=== PATIENT | male | born 1960 | race Caucasian/White ===

== ENCOUNTER 2020-08-10 00:11 | Inpatient (IN) | payer OTHER ==
[2020-08-10 00:48] VITALS: BMI 64.0
--- NOTE | 2020-08-10 01:01 | PDOC ---
History of Present Illness - General Chief Complaint: Alcohol intoxication Stated Complaint: INTOX Time Seen by Provider: 08/10/20 00:22 - History of Present Illness Initial Comments: 08/10/20 00:55 59yo M with reported history of cirrhosis, anemia, and HTN presents from [facility] for evaluation of bruising to arms and abdomen. Patient went to [facility] because he is interested in stopping to drink. He started drinking again three weeks ago because of sadness about separation from his . He has had 2-3 beers most days, last drink was 2 beers this morning. States he has noticed more bruising recently, which he attributes to his anemia and to the alcohol. Denies trauma or falls. PMH: as above PSH: shoulder Meds: patient unsure of names Allergies: none ETOH: 2-3 drinks most days Drugs: denies Tobacco: denies ROS GENERAL/CONSTITUTIONAL: No fever or chills. No weakness. HEAD, EYES, EARS, NOSE AND THROAT: No change in vision. No ear pain or discharge. No sore throat. CARDIOVASCULAR: No chest pain or shortness of breath RESPIRATORY: No cough, wheezing, or hemoptysis. GASTROINTESTINAL: No nausea, vomiting, diarrhea or constipation. GENITOURINARY: No dysuria, frequency, or change in urination. MUSCULOSKELETAL: No joint or muscle swelling or pain. No neck or back pain. SKIN: No rash NEUROLOGIC: No headache, vertigo, loss of consciousness, or change in strength/sensation. ENDOCRINE: No increased thirst. No abnormal weight change HEMATOLOGIC/LYMPHATIC: anemia ALLERGIC/IMMUNOLOGIC: No hives or skin allergy. PE GENERAL: Awake, alert, and fully oriented, in no acute distress. anxious, tremulous HEAD: No signs of trauma, normocephalic, atraumatic EYES: PERRLA, EOMI, sclera anicteric, conjunctiva clear ENT: Auricles normal inspection, hearing grossly normal, nares patent, oropharynx clear without exudates. Moist mucosa NECK: Normal ROM, supple, no lymphadenopathy, JVD, or masses LUNGS: No distress, speaks full sentences, clear to auscultation bilaterally HEART: Regular rate and rhythm, normal S1 and S2, no murmurs, rubs or gallops, peripheral pulses normal and equal bilaterally. ABDOMEN: Soft, distended, large bruising on left. nontender EXTREMITIES : bruising on arms, trace b/l LE edema NEUROLOGICAL: Normal speech, no focal sensorimotor deficits SKIN: Warm, Dry Vital Signs Temp Pulse Resp BP Pulse Ox 98.1 F 81 20 120/72 98 08/10/20 00:35 08/10/20 01:02 08/10/20 01:02 08/10/20 01:02 08/10/20 01:02 59yo M with reported history of cirrhosis, anemia, and HTN presents from [facility] for evaluation of bruising to arms and abdomen. CIWA 7. DDx includes thrombocytopenia, coagulopathy, anemia, ETOH withdrawal. -EKG -CBC, CMP, coags, cardiac enzymes, alcohol 08/10/20 01:03 EKG Labs: notable for Plt 9 and alcohol 263. Also WBC 2.0, Hgb 8.6, K 3.4, AST 153, alk phos 243, albumin 2.6 Ordered for platelets Will admit for ETOH withdrawal and thrombocytopenia 08/10/20 03:37 Signed out to admitting team Past History - Medical History Allergies/Adverse Reactions: Allergies Allergy/AdvReac Type Severity Reaction Status Date / Time No Known Allergies Allergy Verified 08/09/20 21:08 Home Medications: Ambulatory Orders Unobtainable 08/09/20 - Psycho-Social/Smoking History Smoking History: Unknown if ever smoked Have you smoked in the past 12 months: No Information on smoking cessation initiated: No - Substance Abuse Hx (Audit-C & DAST Scrn) How often the patient has a drink containing alcohol: 4 0r more times/wk Number of drinks the patient has on a typical day: 3 or 4 How often the patient has six or more drinks on one occasion: Weekly Score: In Men: 4 or > Positive; In Women: 3 or > Positive: 8 Screen Result (Pos requires Nsg. Audit-10AR): Positive In the last yr the pt used illegal drug/Rx for NonMed reason: No Score: Yes response is considered Positive: 0 Screen Result (Positive result requires Nsg. DAST-10): Negative *Physical Exam - Vital Signs Last Vital Signs Temp Pulse Resp BP Pulse Ox 98.1 F 87 18 136/85 97 08/10/20 00:35 08/10/20 00:35 08/10/20 00:35 08/10/20 00:35 08/10/20 00:35 ED Treatment Course - LABORATORY CBC & Chemistry Diagram: 08/10/20 01:00 08/10/20 01:00 Discharge - Discharge Information Problems reviewed: Yes Clinical Impression/Diagnosis: Thrombocytopenia, Easy bruising, Normocytic anemia Alcohol withdrawal Qualifiers: Complication of substance-induced condition: uncomplicated Qualified Code(s): F10.230 - Alcohol dependence with withdrawal, uncomplicated Cirrhosis Qualifiers: Hepatic cirrhosis type: alcoholic cirrhosis Ascites presence: with ascites Qu alified Code(s): K70.31 - Alcoholic cirrhosis of liver with ascites Condition: Fair - Admission Yes - Follow up/Referral - Patient Discharge Instructions - Post Discharge Activity CIWA Score Nausea/Vomitin-No Nausea/No Vomiting Muscle Tremors: 3 Anxiety: 3 Agitation: 1-Slight > Activity Paroxysmal Sweats: No Perspiration Orientation: 0-Oriented Tacttile Disturbances: 0-None Auditory Disturbances: 0-None Visual Disturbances: 0-None Headache: 0-None Present CIWA-Ar Total Score: 7 - Admission Criteria OASAS Guidelines: Admission for Medically Managed Detox: Requires at least one of the followin. CIWA greater than 12 2. Seizures within the past 24 hours 3. Delirium tremens within the past 24 hours 4. Hallucinations within the past 24 hours 5. Acute intervention needed for co occurring medical disorder 6. Acute intervention needed for co occurring psychiatric disorder 7. Severe withdrawal that cannot be handled at a lower level of care (continued vomiting, continued diarrhea, abnormal vital signs) requiring intravenous medication and/or fluids 8.
--- NOTE | 2020-08-10 01:41 | PDOC ---
Attending Attestation - Resident Resident Name: Alejandro Reynaga - ED Attending Attestation I have performed the following: I have examined & evaluated the patient, The case was reviewed & discussed with the resident, I agree w/resident's findings & plan - HPI HPI: 08/10/20 01:42 Pt comes with cirrhosis and ascites of the liver. Pt has some bruising to his skin and was sent for evaluation. - Physicial Exam PE: 08/10/20 01:43 Pt has normal vitals A+OX3 Pt has normal heart and lungs Abd enlarged liver NT ND neuro exam intact multipole bruises to the right arm - Medical Decision Making 08/10/20 21:21 Pt transfused with platelets. He will be admitted for anemia; low platelets and alcohol induced liver disease Heart Score/ECG Review - ECG Intrepretation Rhythm: Regular Rhythm - [place]: Normal - P and IL Delta Wave(s) Present: No WPW: No - ST and T Early Repolarization: No Non Specific ST-T Wave changes: No - ECG Impressions Normal ECG: Yes Non-specific ST Elevation: No Ischemic Changes: Yes (flat inferior T waves) Discharge - Discharge Information Problems reviewed: Yes Clinical Impression/Diagnosis: Thrombocytopenia, Easy bruising, Normocytic anemia Alcohol withdrawal Qualifiers: Complication of substance-induced condition: uncomplicated Qualified Code(s): F10.230 - Alcohol dependence with withdrawal, uncomplicated Cirrhosis Qualifiers: Hepatic cirrhosis type: alcoholic cirrhosis Ascites presence: with ascites Qualified Code(s): K70.31 - Alcoholic cirrhosis of liver with ascites Condition: Fair Disposition: AGAINST MEDICAL ADVICE - Follow up/Referral - Patient Discharge Instructions - Post Discharge Activity
[2020-08-10 01:58] LABS: BASO % 0.7 % (0-2.0); EOS % 0.6 % (0-4.5); HEMATOCRIT 26.4 % (35.4-49); HEMOGLOBIN 8.6 GM/dL (11.7-16.9); LYMPH % 24.1 % (8-40); MCH 28.2 pg (25.7-33.7); MCHC 32.6 g/dl (32.0-35.9); MEAN CELL VOLUME 86.6 fl (80-96); MONO % 9.7 % (3.8-10.2); NEUT % 64.9 % (42.8-82.8); RBC 3.05 M/mm3 (4.00-5.60); RDW 19.5 % (11.9-15.9)
[2020-08-10 02:04] LABS: PLATELET COUNT 9 K/MM3 (134-434)
[2020-08-10 02:06] LABS: INR 1.39 (0.83-1.09); PROTHROMBIN TIME (PATIENT) 16.4 SEC (9.7-13.0)
[2020-08-10 02:08] LABS: ACTIVATED PTT 35.8 SECONDS (25.2-36.5)
[2020-08-10 02:16] LABS: ALBUMIN 2.6 g/dl (3.4-5.0); BLOOD UREA NITROGEN 10.7 mg/dL (7-18); CALCIUM 7.6 mg/dL (8.5-10.1); CREATININE 0.6 mg/dL (0.55-1.3); POTASSIUM 3.4 mmol/L (3.5-5.1); TOT PROT 7.6 g/dl (6.4-8.2)
[2020-08-10 03:07] LABS: BILIRUBIN,TOTAL 2.4 mg/dL (0.2-1)
--- NOTE | 2020-08-10 03:36 | PN ---
Teaching Attending Note Name of Resident: Mauricio Cottrell ATTENDING PHYSICIAN STATEMENT I saw and evaluated the patient. I reviewed the resident's note and discussed the case with the resident. I agree with the resident's findings and plan as documented. SUBJECTIVE: Patient is a 59 year old man with a PMH of Alcohol abuse, Liver cirrhosis, GI bleeding, PRBC transfusion, Anemia, Ascites and HTN who presents from [facility] for evaluation of bruising to arms and abdomen. Patient went to [facility] because he is interested in stopping drinking. He started drinking again three weeks ago because of sadness about separation from his . He has had 2-3 beers most days, last drink was 2 beers this morning. States he has noticed more bruising recently, which he attributes to his anemia and to the alcohol. Denies trauma or falls. Patient denies chest pain, shortness of breath, abdominal pain, headache, palpitations, dizziness, fever, chills, nausea, vomiting, diarrhea, constipation, dysuria, frequency, urgency, melena, hematochezia or hematuria. Denies tobacco or illicit drug use. No sick contacts or recent travels. Family history of DM in mother. OBJECTIVE: Alert Vital Signs Period Temp Pulse Resp BP Sys/Schumacher Pulse Ox Last 24 Hr 98.1 F 81-87 18-20 120-136/72-85 97-98 HEENT: No Jaundice, eye redness or discharge, PERRLA, EOMI. Normocephalic, atraumatic. External ears are normal and hearing is grossly intact. No nasal discharge. Neck: Supple, nontender. No palpable adenopathy or thyromegaly. No JVD Chest: Good effort. Clear to auscultation and percussion. Heart: Regular. No S3, rub or murmur Abdomen: Not distended, soft, nontender and no HSM. No rebound or guarding. Normal bowel sounds. Ext: Peripheral pulses intact. No leg edema. Skin: Warm and dry. Diffuse petechiae and brusing on trunk and arm; ecchymosis on abdomen and arms. Neuro: Alert. Oriented x3. Anxious and tremulous. CN 2-12 grossly intact. Sensation grossly intact in all four extremities and DTR are symmetric. Psych: Appropriate mood and affect. Good insight. Home Medications Medication Instructions Recorded Unobtainable 08/09/20 Abnormal Lab Results 08/10/20 08/10/20 08/10/20 01:00 01:00 01:00 WBC 2.0 L RBC 3.05 L Hgb 8.6 L Hct 26.4 L RDW 19.5 H Plt Count 9 L* Absolute Neuts (auto) 1.3 L PT with INR 16.40 H INR 1.39 H Potassium 3.4 L Chloride 112 H Anion Gap 7 L Random Glucose 124 H Calcium 7.6 L Total Bilirubin 2.4 H AST 153 H Alkaline Phosphatase 243 H Albumin 2.6 L Alcohol, Quantitative 08/10/20 01:00 WBC RBC Hgb Hct RDW Plt Count Absolute Neuts (auto) PT with INR INR Potassium Chloride Anion Gap Random Glucose Calcium Total Bilirubin AST Alkaline Phosphatase Albumin Alcohol, Quantitative 263.1 H Current Medications Generic Name Dose Route Start Last Admin Trade Name Freq PRN Reason Stop Dose Admin Folic Acid 1 mg 08/10/20 10:00 Folic Acid - PO DAILY [facility] Folic Acid 1 mg/ Thiamine HCl 1,000 mls @ 125 mls/hr 08/10/20 04:44 100 mg/ Multivitamins/Minerals IVPB 08/10/20 12:43 10 ml/ Sodium Chloride ONCE ONE Potassium Chloride 10 meq in 100 mls @ 100 mls/hr 08/10/20 04:45 Potassium Chloride 10 Meq Premix Ivpb - IVPB 08/10/20 05:44 Q60M [facility] Potassium Chloride 10 meq 08/10/20 04:44 K-Dur - PO 08/10/20 04:45 ONCE ONE Thiamine HCl 200 mg 08/10/20 10:00 Vitamin B1 Injection - IVPB DAILY [facility] ASSESSMENT AND PLAN: 1. Alcohol intoxication/Pancytopenia/Severe thrombocytopenia - Pancytopenia likely due to effects of alcoholism and alcoholic liver disease. ER staff prescribed platelet transfusion for the patient. Will consult Hematology, get CT abdomen/pelvis, urinalysis, fibrinogen, FDP, NH3 level, trend LFTs, avoid hepatotoxic drugs and place on reverse isolation. Will do basic anemia work up including serial stool guaiacs, reticulocyte count and iron studies. Will admit to telemetry, implement [facility] Librium alcohol withdrawal protocol and do neurochecks. Implement seizure, fall and aspiration precautions. Treat with IV Banana bag, thiamine and folic acid. Monitor and replete electrolytes (Ca,Mg,K,P). Counseled patient about abstaining from alcohol. Will consult community engagement specialist and refer to alcohol detox upon discharge. Viral testing for COVID-19 ordered and patient placed on airborne, droplet and contact isolation. EKG is pending. Hypokalemia likely partly due to alcoholism. Will check serum magnesium, give IV and PO KCL. Will continue comprehensive care for all of patients comorbid conditions. 2. Hypoalbuminemia - Possibly due to combined effects of malnutrition and inflammation associated with comorbid conditions. Will ensure adequate dietary protein intake and also consult lie detector operator. Urinalysis pending. 3. Hypertension Will restart suitable outpatient antihypertensive drugs when clinically appropriate. Subsequently, will revise regimen to ensure [id number] excellent BP control. Patient counseled on the injurious effects of uncontrolled hypertension. Nonpharmacologic measures to control hypertension like weight loss, salt restriction and exercise stressed. Importance of adherence to treatment regimen and attainment of normotension emphasized. 4. DVT prophylaxis - Early ambulation; cannot use Heparin or SCD due to very low platelets. 5. Advance directives - Full code
[2020-08-10] MEDS ORDERED: POTASSIUM CHLORIDE TABS 10 MEQ TABLET.ER (FP) PO ONE (05:00)
[2020-08-10] MEDS ORDERED: KCL 10 MEQ IVPB 10 MEQ/100 ML INFUS.BAG IVPB SCH (05:00)
[2020-08-10] MEDS ORDERED: KCL 10 MEQ IVPB 10 MEQ/100 ML INFUS.BAG IVPB ONE (05:04)
[2020-08-10] MEDS ORDERED: POTASSIUM CHLORIDE TABS 10 MEQ TABLET.ER (FP) ONE (05:05)
[2020-08-10] MEDS ORDERED: FOLIC ACID INJECTION - 1 MG, THIAMINE HCL 100 MG, MULTIVIT INJECTION ADULT 10 ML in SOD... IVPB ONE (05:15)
--- NOTE | 2020-08-10 05:25 | HP ---
CHIEF COMPLAINT: Bruising PCP: HISTORY OF PRESENT ILLNESS: 59 Y M with a self reported PMH of Cirrhosis, anemia, and HTN, present from [facility] for evaluation of bruising to extremities and left abdomen. He reports that he usually gets these types of bruising when he drinks and it gets better when he stops. He reports that he used to drink "alot" when he was younger and has stopped drinking for about 1 year, however, due to his recent separation with his , he started to drink again 3 weeks ago. He admits to drinking 3-4 beers/d x 3-4 times/week, denies any smoking or IVDU. He reports that he is not able to go home due to a restraining order, therefore, he currently lives with his sister and sometimes at a friends' house. He denies any falls, trauma, LOC, memory loss, loss of motor functions, acute bleeding, chest pain, headache, nausea, vomiting. In ER patient is treated with 4U of platelets ER course was notable for: (1)PLT 9, WBC 2.0, H/H 8.6/26.4 (2) INR 1.39, T.josé miguel 2.4 AST 153, ALT 29, (3) ETOH 263.1 Recent Travel: denies PAST MEDICAL HISTORY: As above in HPI PAST SURGICAL HISTORY: right shoulder surgery Social History: Smoking:denies Alcohol:as in HPI Drugs: denies Allergies No Known Allergies Allergy (Verified 08/09/20 21:08) HOME MEDICATIONS: Home Medications Medication Instructions Recorded Unobtainable 08/09/20 REVIEW OF SYSTEMS CONSTITUTIONAL: Absent: fever, chills, diaphoresis, generalized weakness, malaise, loss of appetite, weight change HEENT: Absent: rhinorrhea, nasal congestion, throat pain, throat swelling, difficulty swallowing CARDIOVASCULAR: Absent: chest pain, syncope, palpitations, irregular heart rate, lightheadedness, peripheral edema RESPIRATORY: Absent: cough, shortness of breath, dyspnea with exertion, orthopnea GASTROINTESTINAL: Absent: abdominal pain, abdominal distension, nausea, vomiting, diarrhea, constipation, melena, hematochezia GENITOURINARY: Absent: dysuria, frequency, urgency, hesitancy, hematuria, flank pain, genital pain SKIN: Absent: rash, itching, pallor NEUROLOGIC: Absent: headache, focal weakness or paresthesias, dizziness, unsteady gait, seizure, mental status changes, bladder or bowel incontinence PHYSICAL EXAMINATION Vital Signs - 24 hr 08/10/20 08/10/20 00:35 01:02 Temperature 98.1 F Pulse Rate 87 Pulse Rate [ 81 Right Radial] Respiratory 18 20 Rate Blood Pressure 136/85 Blood Pressure 120/72 [Right Arm] O2 Sat by Pulse 97 98 Oximetry (%) GENERAL: AAOx3, in no acute distress HEENT: NCAT, PERRLA, EOMI, sclera anicteric, conjunctiva clear, oropharynx clear w/o exudates. MMM. NECK: Normal ROM, supple, no lymphadenopathy, JVD, or masses LUNGS: CTABL no wheezes/ rhonchi/ rales. No distress, speaks in full sentences. No increased work of breathing. HEART: RRR, normal S1 S2, no M/R/G, peripheral pulses 2+ and equal b/l ABDOMEN: Soft, Distended (ascites), non-tender, + BS. No guarding or rebound, negative hepatojugular reflex, no asterisk, mildly visible caput medusa. MSK: ROM WNL, NO CVA tenderness EXTREMITIES: Normal inspection. No peripheral edema. No clubbing or cyanosis. NEUROLOGICAL: CN II-XII intact. Normal speech, gait not observed, no focal sensorimotor deficits. PSYCH: Normal mood, normal affect. SKIN: Warm, Dry, normal turgor, Bruising and petechiae b/l upper and lower extremities, large bruise in left lower abdomen Laboratory Results - last 24 hr 08/10/20 08/10/20 08/10/20 01:00 01:00 01:00 WBC 2.0 L RBC 3.05 L Hgb 8.6 L Hct 26.4 L MCV 86.6 MCH 28.2 MCHC 32.6 RDW 19.5 H Plt Count 9 L* MPV 10.0 Absolute Neuts (auto) 1.3 L Neutrophils % 64.9 Lymphocytes % 24.1 Monocytes % 9.7 Eosinophils % 0.6 Basophils % 0.7 Nucleated RBC % 0 PT with INR 16.40 H INR 1.39 H PTT (Actin FS) 35.8 Sodium 144 Potassium 3.4 L Chloride 112 H Carbon Dioxide 25 Anion Gap 7 L BUN 10.7 Creatinine 0.6 Est GFR (CKD-EPI)AfAm 129.36 Est GFR (CKD-EPI)NonAf 111.61 Random Glucose 124 H Calcium 7.6 L Total Bilirubin 2.4 H AST 153 H ALT 29 Alkaline Phosphatase 243 H Total Protein 7.6 Albumin 2.6 L Alcohol, Quantitative 08/10/20 01:00 WBC RBC Hgb Hct MCV MCH MCHC RDW Plt Count MPV Absolute Neuts (auto) Neutrophils % Lymphocytes % Monocytes % Eosinophils % Basophils % Nucleated RBC % PT with INR INR PTT (Actin FS) Sodium Potassium Chloride Carbon Dioxide Anion Gap BUN Creatinine Est GFR (CKD-EPI)AfAm Est GFR (CKD-EPI)NonAf Random Glucose Calcium Total Bilirubin AST ALT Alkaline Phosphatase Total Protein Albumin Alcohol, Quantitative 263.1 H ASSESSMENT/PLAN: 59 Y M with a self reported PMH of Cirrhosis, anemia, and HTN, present from [facility] for evaluation of bruising to extremities and left abdomen, Labs reveal ed PLT 9, WBC 2.0, H/H 8.6/26.4, admitted for pancytopenia/severe thrombocytopenia #Pancytopenia #severe thrombocytopenia - Likely 2/2 alcoholic liver disease and splenic sequestration - Hx of cirrhosis, self reported by the patient - Patient is receiving 4U of plts in ER - CTAB ordered, will f/u - fibrinogen, FDP, NH3 level - Anemia studies ordered: FOBT, Iron, Retic #Alcohol use disorder - Hx of alcohol abuse, restarted drinking - Ordered IV Banana bag, thiamine and folic acid - [facility] alcohol withdrawal protocol when clinically indicated #Hx of HTN - Patient does not know his medications, will need to med rec and restart home meds when clinically appropriate - will continue to monitor BP DVTppx - NO chemical ppx, severe thrombocytopenia - Encourage early ambulation FEN - No standing fluids - Continue to monitor electrolytes, K+3.4, repleted - Low sodium diet Dispo - Will continue to monitor in telemetry Family Medical History Family History: As Documented Visit type - Emergency Visit Emergency Visit: Yes ED Registration Date: 08/10/20 Care time: The patient presented to the Emergency Department on the above date and was hospitalized for further evaluation of their emergent condition. - New Patient This patient is new to me today: No - Critical Care Critical Care patient: No ATTENDING PHYSICIAN STATEMENT I saw and evaluated the patient. I reviewed the resident's note and discussed the case with the resident. I agree with the resident's findings and plan as documented. SUBJECTIVE: OBJECTIVE: ASSESSMENT AND PLAN:
[2020-08-10] MEDS ORDERED: LORazepam 0.5 MG TABLET ONE ×4 (09:19→18:57)
[2020-08-10] MEDS: LORazepam 0.5 MG TABLET PO PRN ×2 (09:29→18:32)
--- NOTE | 2020-08-10 09:41 | CON.GI ---
Consult Consult Specialty:: GI Referred by:: Hospitalist Service Reason for Consultation:: Cirrhosis - History of Present Illness Chief Complaint: Bruising and anemia History of Present Illness: 59M transferred from detox for evaluation of bruising and anemia. Has a history of alcoholic cirrhosis. Lives in [place] and is followed by gastroenterologists there. He alludes to having had 4 endoscopies, the last being 2 moths ago and being performed by Dr. Fabby Castro. by description it sounds like he may also be followed by carpenter supervisor Dr. Xiang Miranda in [place]. He alludes to having vomited blood in the past leading to his endoscopies. banding may have been performed. he denies vomiting of blood, rect al bleeding, melena. he has noticed bruising and gradual increase in abdominal girth. No abdominal pain. Platelet count noted 9K. CT scan revealed changes consistent with cirrhosis including moderate ascites. His father was an alcoholic. No family history of colorectal cancer or other Gi malignancy. - History Source History Provided By: Patient, Medical Record Limitations to Obtaining History: No Limitations - Past Medical History Cardio/Vascular: Yes: HTN Gastrointestinal: Yes: Esophageal Varices (presumed) Hepatobiliary: Yes: Cirrhosis (alcoholic) - Past Surgical History Additional Surgical History: right shoulder surgery - Alcohol/Substance Use Hx Alcohol Use: Yes (Alcohol abuse) - Smoking History Smoking history: Unknown if ever smoked Have you smoked in the past 12 months: No - Social History Usual Living Arrangement: Other (With sister) ADL: Independent Place of : Other ([place]) History of Recent Travel: No Home Medications - Allergies Allergies/Adverse Reactions: Allergies Allergy/AdvReac Type Severity Reaction Status Date / Time No Known Allergies Allergy Verified 08/09/20 21:08 - Home Medications Home Medications: Ambulatory Orders Unobtainable 08/09/20 Family Medical History Other Family History: Father: : alcoholic, DM II. Mother: Alive: healthy. 4 sisters: healthy. 2 daughters, 3 sons: healthy Review of Systems - Review of Systems Constitutional: denies: Chills Cardiovascular: denies: Chest Pain Respiratory: denies: SOB Gastrointestinal: denies: Abdominal Pain, Melena, Nausea, Rectal Bleeding, Vomiting, Vomiting Blood Physical Exam-GI Vital Signs: Vital Signs Temperature 98.8 F 08/10/20 09:06 Pulse Rate 100 H 08/10/20 09:06 Respiratory Rate 17 08/10/20 09:06 Blood Pressure 141/89 08/10/20 09:06 O2 Sat by Pulse Oximetry (%) 100 08/10/20 09:06 Constitutional: Yes: Calm Eyes: No: Sclera Icterus Cardiovascular: Yes: Tachycardia. No: Murmur Respiratory: Yes: CTA Bilaterally Gastrointestinal Inspection: Yes: Distention (softly protuberant) ...Auscultate: Yes: Normoactive Bowel Sounds ...Palpate: Yes: Soft. No: Hepatomegaly, Splenomegaly, Tenderness ...Percussion: No: Tympanitic ...Rectal Exam: Yes: Deferred (refused by patient) Edema: No (no LE edema) Neurological: Yes: Alert. No: Asterix[facility] Labs: CBC, BMP 08/10/20 01:00 08/10/20 01:00 INR, PTT INR 1.39 (0.83-1.09) H 08/10/20 01:00 Fibrinogen 156.0 mg/dL (238-498) L 08/10/20 05:30 Imaging - Results Cat Scan: Report Reviewed, Image Reviewed Problem List - Problems (1) Cirrhosis Assessment/Plan: Receives care in [place] with recent EGD performed: advise: Obtain further information regarding his inpatient/outpatient GI care at [facility] Will need follow-up with his gastroenterologits / carpenter supervisor upon discharged Nadolol 20mg once daily. Hold for systolic blood presure less than 90, heart rate < 55 or if patient symptomatic Obtain home medication list to see what other medications he has been taking Hematology evaluation for severe thrombocytopenia When thrombocytopenia allows, diagnostic paracentesis with fluid sent for cell count with differential, culture, cytology (needs to be written as a physical order in the chart and nurse needs to be notified), total protein, albumin. hepatic panel should be drawn the same day as the paracentesis performed. Withdrawal precautions. Code(s): K74.60 - UNSPECIFIED CIRRHOSIS OF LIVER Qualifiers: Hepatic cirrhosis type: alcoholic cirrhosis Ascites presence: with ascites Qualified Code(s): K70.31 - Alcoholic cirrhosis of liver with ascites
[2020-08-10] MEDS ORDERED: THIAMINE HCL 200 MG/2 ML VIAL IVPB SCH (10:00)
[2020-08-10] MEDS ORDERED: FOLIC ACID 1 MG TABLET (FP) PO SCH (10:00)
[2020-08-10] MEDS ORDERED: FOLIC ACID 1 MG TABLET (FP) ONE (10:17)
[2020-08-10] MEDS ORDERED: THIAMINE HCL 200 MG/2 ML VIAL ONE (10:17)
--- NOTE | 2020-08-10 11:12 | PN ---
Teaching Attending Note Name of Resident: Bernadette Anne ATTENDING PHYSICIAN STATEMENT I saw and evaluated the patient. I reviewed the resident's note and discussed the case with the resident. I agree with the resident's findings and plan as documented. SUBJECTIVE: Feels okay, mild abdominal discomfort. No fever/chills/nausea/vomiting/melena/hematochezia. OBJECTIVE: Afebrile, hemodynamically Stable. Tremor of outstretched arms/tongue. Last Vital Signs Temp Pulse Resp BP Pulse Ox 98.8 F 100 H 17 141/89 100 08/10/20 09:06 08/10/20 09:06 08/10/20 09:06 08/10/20 09:06 08/10/20 09:06 HEENT - Atraumatic, Normocephalic. Heart - S1, S2, RRR Lungs - clear to auscultation Abdomen - Distended, Ascites +. Mild generalized tenderness. Bowel Sounds normal. Extremities - trace edema, no calf tenderness. L shoulder discomfort/reduced ROM - chronic. MS - Some bruising on extremities and small area on abdomen. Neuro - AAO x 3. Tone/Power normal. Laboratory Results - last 24 hr 08/10/20 08/10/20 08/10/20 01:00 01:00 01:00 WBC 2.0 L RBC 3.05 L Hgb 8.6 L Hct 26.4 L MCV 86.6 MCH 28.2 MCHC 32.6 RDW 19.5 H Plt Count 9 L* MPV 10.0 Absolute Neuts (auto) 1.3 L Neutrophils % 64.9 Lymphocytes % 24.1 Monocytes % 9.7 Eosinophils % 0.6 Basophils % 0.7 Nucleated RBC % 0 Retic Count PT with INR 16.40 H INR 1.39 H PTT (Actin FS) 35.8 Fibrinogen Sodium 144 Potassium 3.4 L Chloride 112 H Carbon Dioxide 25 Anion Gap 7 L BUN 10.7 Creatinine 0.6 Est GFR (CKD-EPI)AfAm 129.36 Est GFR (CKD-EPI)NonAf 111.61 Random Glucose 124 H Calcium 7.6 L Iron 41 L TIBC 277 Iron Saturation 14 L Unsaturated IBC 236 Ferritin 29.4 Total Bilirubin 2.4 H AST 153 H ALT 29 Alkaline Phosphatase 243 H Ammonia Total Protein 7.6 Albumin 2.6 L Alcohol, Quantitative Blood Type Antibody Screen 08/10/20 08/10/20 08/10/20 01:00 04:00 04:20 WBC RBC Hgb Hct MCV MCH MCHC RDW Plt Count MPV Absolute Neuts (auto) Neutrophils % Lymphocytes % Monocytes % Eosinophils % Basophils % Nucleated RBC % Retic Count PT with INR INR PTT (Actin FS) Fibrinogen Sodium Potassium Chloride Carbon Dioxide Anion Gap BUN Creatinine Est GFR (CKD-EPI)AfAm Est GFR (CKD-EPI)NonAf Random Glucose Calcium Iron TIBC Iron Saturation Unsaturated IBC Ferritin Total Bilirubin AST ALT Alkaline Phosphatase Ammonia Total Protein Albumin Alcohol, Quantitative 263.1 H Blood Type O POSITIVE O POSITIVE Antibody Screen Negative Negative 08/10/20 08/10/20 08/10/20 05:30 05:30 05:30 WBC RBC Hgb Hct MCV MCH MCHC RDW Plt Count MPV Absolute Neuts (auto) Neutrophils % Lymphocytes % Monocytes % Eosinophils % Basophils % Nucleated RBC % Retic Count 2.58 H PT with INR INR PTT (Actin FS) Fibrinogen Sodium Potassium Chloride Carbon Dioxide Anion Gap BUN Creatinine Est GFR (CKD-EPI)AfAm Est GFR (CKD-EPI)NonAf Random Glucose Calcium Iron 50 TIBC 278 Iron Saturation 17 L Unsaturated IBC 228 Ferritin 28.4 Total Bilirubin AST ALT Alkaline Phosphatase Ammonia 71.60 H Total Protein Albumin Alcohol, Quantitative Blood Type Antibody Screen 08/10/20 05:30 WBC RBC Hgb Hct MCV MCH MCHC RDW Plt Count MPV Absolute Neuts (auto) Neutrophils % Lymphocytes % Monocytes % Eosinophils % Basophils % Nucleated RBC % Retic Count PT with INR INR PTT (Actin FS) Fibrinogen 156.0 L Sodium Potassium Chloride Carbon Dioxide Anion Gap BUN Creatinine Est GFR (CKD-EPI)AfAm Est GFR (CKD-EPI)NonAf Random Glucose Calcium Iron TIBC Iron Saturation Unsaturated IBC Ferritin Total Bilirubin AST ALT Alkaline Phosphatase Ammonia Total Protein Albumin Alcohol, Quantitative Blood Type Antibody Screen Current Medications Generic Name Dose Route Start Last Admin Trade Name Freq PRN Reason Stop Dose Admin Folic Acid 1 mg 08/10/20 10:00 08/10/20 10:33 Folic Acid - PO 1 mg DAILY BEKA Administration Folic Acid 1 mg/ Thiamine HCl 1,000 mls @ 125 mls/hr 08/10/20 05:15 08/10/20 06:27 100 mg/ Multivitamins/Minerals IVPB 08/10/20 13:14 125 mls/hr 10 ml/ Sodium Chloride ONCE ONE Administration Lorazepam 1 mg 08/12/20 05:00 Ativan - PO 08/12/20 23:01 0500,1100,1700,2300 BEKA Lorazepam 1 mg 08/10/20 08:39 08/10/20 09:29 Ativan - PO 08/12/20 23:59 1 mg Q4H PRN Administration Symptoms of Withdrawal Lorazepam 2 mg 08/10/20 11:00 Ativan - PO 08/11/20 23:01 0500,1100,1700,2300 BEKA Lorazepam 0.5 mg 08/13/20 05:00 Ativan - PO 08/13/20 23:01 Q6H BEKA Lorazepam 0.5 mg 08/13/20 00:00 Ativan - PO 08/14/20 00:00 Q4H PRN Symptoms of Withdrawal Lorazepam 0.5 mg 08/14/20 05:00 Ativan - PO 08/14/20 05:01 ONCE ONE Thiamine HCl 200 mg 08/10/20 10:00 08/10/20 10:33 Vitamin B1 Injection - IVPB 200 mg DAILY BEKA Administration Home Medications Medication Instructions Recorded Unobtainable 08/09/20 ASSESSMENT AND PLAN: 59 year old male with history of Cirrhosis, Chronic Anemia, and HTN, sent from [facility] (where he was undergoing alcohol detox) for bruising, found to have Platelets of 9. Denies melena/hematochezia/hematemesis/hemoptysis. 1. Pancytopenia (Leukopenia/Anemia/thrombocytopenia) - likely secondary to Liver Cirrhosis CT A/P - Cirrhosis/Ascites/Varices WBC 2, H/H 8.6/26.4, Platelets 9 - ordered 4 units Platelets by admitting team. Iron Deficiency Anemia - No active bleeding No fever/GREGG, unlikely hemolysis. Peripheral smear requested, [facility] Hematology evaluation requested. No signs of infection - GI recommend Paracentesis once platelet levels allow - no empiric Abx therapy. Will need Iron supplementation on discharge. Records requested from [facility]. 2. Acute Alcohol Withdrawal Ativan as per [facility] protocol Banana Bag MVI, Thiamine, Folic Acid. 3. Ascites and Varices secondary to Portal Hypertension due to Liver Cirrhosis Evaluated by GI - recommend Paracentesis once platelet level allows, started on nadolol. Records requested from [facility] for recent EGD/GI work up and list of home meds. 4. Elevated Ammonia secondary to Cirrhosis - no evidence of acute hepatic encephalopathy. Will give lactulose to prevent encephalopathy. 5. HTN - Need to reconcile meds. Recommended Nadolol by GI in the interim. DVT Px - Heparin/Lovenox held due to severe Thrombocytopneia
[2020-08-10] MEDS ORDERED: LACTULOSE 20 GM/30 ML UDC (FOR ORAL USE ONLY) PO PRN (11:18)
[2020-08-10] MEDS ORDERED: NADOLOL 20 MG TABLET (FP) PO SCH (11:30)
--- NOTE | 2020-08-10 11:50 | PN ---
Physical Exam: SUBJECTIVE: Patient seen and examined at bedside this morning. Denies fevers, chills, nausea, vomiting, headache, dizziness, chest pain, SOB, abdominal pain, bloody urine or stool. + tremors. OBJECTIVE: Vital Signs Temperature 98.8 F 08/10/20 11:15 Pulse Rate 93 H 08/10/20 11:15 Respiratory Rate 16 08/10/20 11:15 Blood Pressure 133/83 08/10/20 11:15 O2 Sat by Pulse Oximetry (%) 97 08/10/20 11:15 GENERAL: The patient is awake, alert, and fully oriented, in no acute distress. HEAD: Normal with no signs of trauma. EYES: PERRLA, EOMI, sclera anicteric, conjunctiva clear. ENT: moist mucous membranes. NECK: supple. LUNGS: Breath sounds equal, clear to auscultation bilaterally HEART: Regular rate and rhythm, S1, S2 ABDOMEN: Soft, mildly distended, mild diffuse tenderness, normoactive bowel sounds, +LLQ bruising EXTREMITIES: 2+ pulses, warm, well-perfused, no edema. +b/l LE bruises NEUROLOGICAL: Cranial nerves II through XII grossly intact. Normal speech PSYCH: Normal mood, normal affect. SKIN: Warm, dry, normal turgor Laboratory Results - last 24 hr 08/10/20 08/10/20 08/10/20 01:00 01:00 01:00 WBC 2.0 L RBC 3.05 L Hgb 8.6 L Hct 26.4 L MCV 86.6 MCH 28.2 MCHC 32.6 RDW 19.5 H Plt Count 9 L* MPV 10.0 Absolute Neuts (auto) 1.3 L Neutrophils % 64.9 Lymphocytes % 24.1 Monocytes % 9.7 Eosinophils % 0.6 Basophils % 0.7 Nucleated RBC % 0 Retic Count PT with INR 16.40 H INR 1.39 H PTT (Actin FS) 35.8 Fibrinogen Sodium 144 Potassium 3.4 L Chloride 112 H Carbon Dioxide 25 Anion Gap 7 L BUN 10.7 Creatinine 0.6 Est GFR (CKD-EPI)AfAm 129.36 Est GFR (CKD-EPI)NonAf 111.61 Random Glucose 124 H Calcium 7.6 L Iron 41 L TIBC 277 Iron Saturation 14 L Unsaturated IBC 236 Ferritin 29.4 Total Bilirubin 2.4 H AST 153 H ALT 29 Alkaline Phosphatase 243 H Ammonia Total Protein 7.6 Albumin 2.6 L Alcohol, Quantitative Blood Type Antibody Screen 08/10/20 08/10/20 08/10/20 01:00 04:00 04:20 WBC RBC Hgb Hct MCV MCH MCHC RDW Plt Count MPV Absolute Neuts (auto) Neutrophils % Lymphocytes % Monocytes % Eosinophils % Basophils % Nucleated RBC % Retic Count PT with INR INR PTT (Actin FS) Fibrinogen Sodium Potassium Chloride Carbon Dioxide Anion Gap BUN Creatinine Est GFR (CKD-EPI)AfAm Est GFR (CKD-EPI)NonAf Random Glucose Calcium Iron TIBC Iron Saturation Unsaturated IBC Ferritin Total Bilirubin AST ALT Alkaline Phosphatase Ammonia Total Protein Albumin Alcohol, Quantitative 263.1 H Blood Type O POSITIVE O POSITIVE Antibody Screen Negative Negative 08/10/20 08/10/20 08/10/20 05:30 05:30 05:30 WBC RBC Hgb Hct MCV MCH MCHC RDW Plt Count MPV Absolute Neuts (auto) Neutrophils % Lymphocytes % Monocytes % Eosinophils % Basophils % Nucleated RBC % Retic Count 2.58 H PT with INR INR PTT (Actin FS) Fibrinogen Sodium Potassium Chloride Carbon Dioxide Anion Gap BUN Creatinine Est GFR (CKD-EPI)AfAm Est GFR (CKD-EPI)NonAf Random Glucose Calcium Iron 50 TIBC 278 Iron Saturation 17 L Unsaturated IBC 228 Ferritin 28.4 Total Bilirubin AST ALT Alkaline Phosphatase Ammonia 71.60 H Total Protein Albumin Alcohol, Quantitative Blood Type Antibody Screen 08/10/20 05:30 WBC RBC Hgb Hct MCV MCH MCHC RDW Plt Count MPV Absolute Neuts (auto) Neutrophils % Lymphocytes % Monocytes % Eosinophils % Basophils % Nucleated RBC % Retic Count PT with INR INR PTT (Actin FS) Fibrinogen 156.0 L Sodium Potassium Chloride Carbon Dioxide Anion Gap BUN Creatinine Est GFR (CKD-EPI)AfAm Est GFR (CKD-EPI)NonAf Random Glucose Calcium Iron TIBC Iron Saturation Unsaturated IBC Ferritin Total Bilirubin AST ALT Alkaline Phosphatase Ammonia Total Protein Albumin Alcohol, Quantitative Blood Type Antibody Screen Active Medications Generic Name Dose Route Start Last Admin Trade Name Freq PRN Reason Stop Dose Admin Folic Acid 1 mg 08/10/20 10:00 08/10/20 10:33 Folic Acid - PO 1 mg DAILY BEKA Administration Folic Acid 1 mg/ Thiamine HCl 1,000 mls @ 125 mls/hr 08/10/20 05:15 08/10/20 06:27 100 mg/ Multivitamins/Minerals IVPB 08/10/20 13:14 125 mls/hr 10 ml/ Sodium Chloride ONCE ONE Administration Lactulose 20 gm 08/10/20 11:18 Cephulac (Oral Use) PO TID PRN CONSTIPATION Lorazepam 1 mg 08/12/20 05:00 Ativan - PO 08/12/20 23:01 0500,1100,1700,2300 BEKA Lorazepam 1 mg 08/10/20 08:39 08/10/20 09:29 Ativan - PO 08/12/20 23:59 1 mg Q4H PRN Administration Symptoms of Withdrawal Lorazepam 2 mg 08/10/20 11:00 Ativan - PO 08/11/20 23:01 0500,1100,1700,2300 BEKA Lorazepam 0.5 mg 08/13/20 05:00 Ativan - PO 08/13/20 23:01 Q6H BEKA Lorazepam 0.5 mg 08/13/20 00:00 Ativan - PO 08/14/20 00:00 Q4H PRN Symptoms of Withdrawal Lorazepam 0.5 mg 08/14/20 05:00 Ativan - PO 08/14/20 05:01 ONCE ONE Multivitamins/Minerals/Vitamin C 1 tab 08/11/20 10:00 Tab-A-Vit - PO DAILY BEKA Nadolol 20 mg 08/10/20 11:30 Corgard - PO DAILY BEKA Thiamine HCl 200 mg 08/10/20 10:00 08/10/20 10:33 Vitamin B1 Injection - IVPB 200 mg DAILY BEKA Administration ASSESSMENT/PLAN: Patient is a 59 year old male with history of Cirrhosis, Chronic Anemia, and HTN, sent from [facility] for bruising of LE and abdomen. Platelet count of 9. #Pancytopenia -leukopenia, anemia, and thrombocytopenia likely 2/2 liver cirrhosis -WBC 2, H/H 8.6/26.4, Platelets 9 -4u of platelets ordered -no fever or GREGG, unlikely hemolysis, will request peripheral smear, LDH, haptoglobin to r/o -Heme-Onc consulted #Alcohol withdrawal -CIWA 8 -will start ativan protocol -MV, folate and thiamine -fall risk and seizure precaution #Liver Cirrhosis -CTAP: findings consistent with cirrhosis including moderate amount of ascites, splenomegaly, varices and recanalized umbilical vein. -will follow up records from [facility] on previous work-ups done -GI consulted. Recommendations appreciated. -start Nadolol 20mg daily -recommend diagnostic paracentesis once platelet count permits. -Fluid to be sent for cell count with differential, culture, cytology, total protein, albumin, with hepatic panel drawn the same day as the paracentesis performed. #HTN - -On Nadolol 20mg daily for cirrhosis #FEN -Not on any standing fluids -hypoK repleted, routine bmp monitoring -sodium controlled diet #Prophylaxis -SCDs -hold chemical ppx in light of thrombocytopenia #Disposition -full code -med surg floor Visit type - Emergency Visit Emergency Visit: Yes ED Registration Date: 08/09/20 Care time: The patient presented to the Emergency Department on the above date and was hospitalized for further evaluation of their emergent condition. - New Patient This patient is new to me today: Yes Date on this admission: 08/10/20 - Critical Care Critical Care patient: No ATTENDING PHYSICIAN STATEMENT I saw and evaluated the patient. I reviewed the resident's note and discussed the case with the resident. I agree with the resident's findings and plan as documented. SUBJECTIVE: OBJECTIVE: ASSESSMENT AND PLAN:
[2020-08-10] MEDS: LORazepam 0.5 MG TABLET PO SCH ×2 (13:41→17:53)
[2020-08-10 14:05] LABS: BASO % 0.6 % (0-2.0); EOS % 0.9 % (0-4.5); HEMOGLOBIN 7.6 GM/dL (11.7-16.9); LYMPH % 18.9 % (8-40); MCH 27.4 pg (25.7-33.7); MCHC 31.7 g/dl (32.0-35.9); MEAN CELL VOLUME 86.3 fl (80-96); MEAN PLT VOLUME 8.7 fl (7.5-11.1); MONO % 13.8 % (3.8-10.2); NEUT % 65.8 % (42.8-82.8); RBC 2.78 M/mm3 (4.00-5.60); RDW 18.9 % (11.9-15.9)
[2020-08-10 14:11] LABS: PLATELET COUNT 16 K/MM3 (134-434); WHITE BLOOD COUNT 1.9 K/mm3 (4.0-10.0)
[2020-08-10 14:32] LABS: ALBUMIN 2.5 g/dl (3.4-5.0); ANISOCYTOSIS 1+; BILIRUBIN,TOTAL 2.9 mg/dL (0.2-1); BLOOD UREA NITROGEN 9.3 mg/dL (7-18); CALCIUM 7.8 mg/dL (8.5-10.1); CREATININE 0.6 mg/dL (0.55-1.3); MACROCYTOSIS 0; PLATELET ESTIMATE DECREASED; POTASSIUM 3.3 mmol/L (3.5-5.1); ROULEAU 1+
[2020-08-10] MEDS ORDERED: POTASSIUM CHLORIDE TABS 20 MEQ TABLET.ER (FP) PO ONE ×4 (14:57→19:43)
[2020-08-10] MEDS ORDERED: POTASSIUM CHLORIDE TABS 20 MEQ TABLET.ER (FP) PO SCH (15:00)
[2020-08-10 15:04] VITALS: BP 125/81; PULSE 96; TEMP 98.1
--- NOTE | 2020-08-10 16:10 | EKG ---
Test Reason : Blood Pressure : / mmHG Vent. Rate : 080 BPM Atrial Rate : 080 BPM P-R Int : 150 ms QRS Dur : 092 ms QT Int : 408 ms P-R-T Axes : 026 005 031 degrees QTc Int : 470 ms NORMAL SINUS RHYTHM WITH SINUS ARRHYTHMIA NORMAL ECG NO PREVIOUS ECGS AVAILABLE Confirmed by MD Chion, Wilbur ([id number]) on 08/10/2020 4:09:23 PM Referred By: Confirmed By:Wilbur Magana MD
--- NOTE | 2020-08-10 19:35 | CON.HO ---
Consult - text type - Consultation Consultation Note: Pr ER patient ssigned out against medical advise
[2020-08-10] MEDS ORDERED: MAGNESIUM SULF 50% (8.12 MEQ/2 ML-1 GM VIAL) IVPB ONE (19:43)
[2020-08-10] MEDS ORDERED: LACTULOSE 20 GM/30 ML UDC (FOR ORAL USE ONLY) PO SCH (22:00)
[2020-08-11 02:15] LABS: IRON SERUM 75 ug/dL (50-175); TOTAL IRON BINDING CAPACITY 333 ug/dL (250-450)
[2020-08-11] MEDS ORDERED: POTASSIUM CHLORIDE TABS 20 MEQ TABLET.ER (FP) PO ONE (02:32)
[2020-08-11 07:33] LABS: MAGNESIUM 1.4 mg/dL (1.8-2.4); PHOSPHOROUS 1.7 mg/dL (2.5-4.9)
[2020-08-11 07:34] LABS: MAGNESIUM 1.4 mg/dL (1.8-2.4); PHOSPHOROUS 1.8 mg/dL (2.5-4.9)
[2020-08-11] MEDS ORDERED: MULTIVITAMINS (DAILY MVI) TABLET (FP) PO SCH (10:00)
[2020-08-12] MEDS ORDERED: LORazepam 1 MG TABLET PO SCH (05:00)
[2020-08-13] MEDS ORDERED: LORazepam 0.5 MG TABLET PO SCH (05:00)
== END 2020-08-10 19:30 | disposition left against medical advice (07) | DRG 660 ==
LOC: JER 00:11 → JERBED 02:33
PROVIDERS: ADMIT Internal Medicine
DX: D61.818 Other pancytopenia (principal); E46 Unspecified protein-calorie malnutrition; E88.09 Other disorders of plasma-protein metabolism, not elsewhere classified; K76.6 Portal hypertension; E87.6 Hypokalemia; D64.9 Anemia, unspecified; I10 Essential (primary) hypertension; F10.230 Alcohol dependence with withdrawal, uncomplicated; K70.31 Alcoholic cirrhosis of liver with ascites
CPT/HCPCS: 36415; 36430; 36511; 71045-TC-FY; 73030-TC-LT-FY; 74176-TC; 76700-TC; 80053; 80307; 82140; 82248; 82607; 82728; 82746; 83010; 83540; 83550; 83615; 83735; 84100; 84443; 85025; 85045; 85362; 85384; 85610; 85730; 86850; 86880; 86900; 86901; 93005; 93010; 99285-25; P9034; P9038; U0003

== ENCOUNTER 2020-08-10 22:43 | Inpatient (IN) | payer OTHER ==
[2020-08-10 22:52] VITALS: BMI 24.2
--- NOTE | 2020-08-10 22:57 | PDOC ---
History of Present Illness - General Chief Complaint: Alcohol intoxication Stated Complaint: ALCOHOL INTOXICATION Time Seen by Provider: 08/10/20 22:48 - History of Present Illness Initial Comments: HPI: 08/10/20 23:32 59 yo M PMH HTN, cirrhosis, anemia, and severe thrombocytopenia, admitted until earlier today for thrombocytopenia and AMA'd at around 1930, back in the ER after falling at home. When asked why he went home, states that he is not sure, but he wants to stay now. States that he was walking around at home, tripped and fell. No LOC, hit his head and R knee. No current complaints. ROS: GENERAL/CONSTITUTIONAL: denies fever, chills, diaphoresis, generalized weakness HEAD, EYES, EARS, NOSE AND THROAT: denies rhinorrhea, nasal congestion NEUROLOGIC: denies headache, focal weakness, dizziness, mental status changes CARDIOVASCULAR: denies chest pain, syncope, palpitations, lightheadedness RESPIRATORY: denies cough, shortness of breath, dyspnea with exertion GASTROINTESTINAL: denies abdominal pain, abdominal distension, nausea, vomiting, diarrhea, constipation GENITOURINARY: denies dysuria, frequency, urgency MUSCULOSKELETAL: denies myalgia, arthralgia, back pain, neck pain SKIN: denies rash, itching PE: Gen: well-developed, well-nourished, NAD Neuro: AAOX4, CN II-XII intact, FTN intact, EOMI, PERRLA, 5/5 strength, SILT. Tremulous, no asterixis. HEENT: contusion on forehead 1 cm, normocephalic Neck: trachea midline, supple CV: regular rate, regular rhythm, no murmurs, rubs, or gallops Pulm: CTA b/l, no wheezing Abd: soft, non-distended, non-tender MSK: full ROM, intact pulses Extr: no edema, no deformities, R knee abrasions Skin: warm, dry MDM: Cirrhotic s/p fall. - CT head, cervical spine - CBC with diff - Boostrix - admit again 08/11/20 00:12 Hgb 8.7, platelets 55. F/u CT scans, admit. 08/11/20 00:55 Patient found crawling on the floor, states that he slipped trying to put his shoes on, no head trauma or LOC. Pending read of head and cervical CT, will admit. 08/11/20 01:45 CT head and C spine without acute abnormality. Will admit. Past History - Medical History Allergies/Adverse Reactions: Allergies Allergy/AdvReac Type Severity Reaction Status Date / Time No Known Allergies Allergy Verified 08/10/20 22:51 Home Medications: Ambulatory Orders Unobtainable 08/09/20 COPD: No - Immunization History Immunization Up to Date: Yes - Psycho-Social/Smoking History Smoking History: Never smoked Have you smoked in the past 12 months: No - Substance Abuse Hx (Audit-C & DAST Scrn) How often the patient has a drink containing alcohol: 4 0r more times/wk Number of drinks the patient has on a typical day: 10 or more How often the patient has six or more drinks on one occasion: Daily or almost daily Score: In Men: 4 or > Positive; In Women: 3 or > Positive: 12 Screen Result (Pos requires Nsg. Audit-10AR): Positive In the last yr the pt used illegal drug/Rx for NonMed reason: No Score: Yes response is considered Positive: 0 Screen Result (Positive result requires Nsg. DAST-10): Negative *Physical Exam - Vital Signs Last Vital Signs Temp Pulse Resp BP Pulse Ox 98.1 F 98 H 18 107/53 L 98 08/10/20 22:50 08/10/20 22:50 08/10/20 22:50 08/10/20 22:50 08/10/20 22:50 ED Treatment Course - LABORATORY CBC & Chemistry Diagram: 08/10/20 23:28 Discharge - Discharge Information Problems reviewed: Yes Clinical Impression/Diagnosis: Thrombocytopenia Cirrhosis Qualifiers: Hepatic cirrhosis type: alcoholic cirrhosis Ascites presence: with ascites Qualified Code(s): K70.31 - Alcoholic cirrhosis of liver with ascites - Follow up/Referral - Patient Discharge Instructions - Post Discharge Activity
--- NOTE | 2020-08-10 23:28 | PDOC ---
Documentation entered by Tianna Hall SCRIBE, acting as scribe for Edy Harry MD. Edy Harry MD: This documentation has been prepared by the scribeRafael Ana, SCRIBE, under my direction and personally reviewed by me in its entirety. I confirm that the documentation accurately reflects all work, treatment, procedures, and medical decision making performed by me. Attending Attestation - Resident Resident Name: Arely Tolentino - ED Attending Attestation I have performed the following: I have examined & evaluated the patient, The case was reviewed & discussed with the resident, I agree w/resident's findings & plan, Exceptions are as noted - HPI HPI: 08/10/20 23:06 Patient is a 59 year old male with a significant past medical history of alcohol abuse who presents to the ED with alcohol intox and head trauma after signing out ama 3 hrs earlier Patient denies: Allergies: NKDA 08/10/20 23:54 - Physicial Exam PE: 08/10/20 23:23 EXAMINATION CONSTITUTIONAL: Alert, Awake; + aob; ataxic; in no apparent distress HEAD: Normocephalic; + minimal soft tissue selling to forehead; no step offs, no crepitus EYES: PERRL; EOM intact ENMT: External appears normal; NECK: Supple; non-tender; no cervical lymphadenopathy CARD: Normal S1, S2; no murmurs, rubs, or gallops RESP: Normal chest excursion with respiration; breath sounds clear and equal bilaterally; no wheezes, rhonchi, or rales ABD: Soft, +distended; + ascites; non-tender; EXT: Normal ROM in all four extremities; non-tender to palpation; distal pulses intact SKIN: Warm, dry, no rash NEURO: moving all extr symmetrically - Medical Decision Making 08/10/20 23:27 Patient is a 59-year-old male with history of alcohol use, liver cirrhosis, thrombocytopenia who returns 3 hours after signing out AMA from [facility] where he was admitted for thrombocytopenia and received a platelet transfusion. Patient denies alcohol use but claims a mechanical fall. In the ER, patient is awake and alert, ataxic, with soft tissue swelling to forehead without bony crepitus or step-offs. Will obtain CT of head as well as CBC and a blood alcohol level. Will readmit. Discharge - Discharge Information Problems reviewed: Yes Clinical Impression/Diagnosis: Thrombocytopenia Cirrhosis Qualifiers: Hepatic cirrhosis type: alcoholic cirrhosis Ascites presence: with ascites Qualified Code(s): K70.31 - Alcoholic cirrhosis of liver with ascites - Follow up/Referral Referrals: Katherine Earl MD [Primary Care Provider] - - Patient Discharge Instructions - Post Discharge Activity
[2020-08-10 23:56] LABS: BASO % 0.5 % (0-2.0); EOS % 0.3 % (0-4.5); HEMOGLOBIN 8.7 GM/dL (11.7-16.9); LYMPH % 9.8 % (8-40); MCH 28.3 pg (25.7-33.7); MCHC 32.3 g/dl (32.0-35.9); MEAN CELL VOLUME 87.7 fl (80-96); MEAN PLT VOLUME 8.6 fl (7.5-11.1); MONO % 7.7 % (3.8-10.2); NEUT % 81.7 % (42.8-82.8); PLATELET COUNT 55 K/MM3 (134-434); RBC 3.07 M/mm3 (4.00-5.60); RDW 19.5 % (11.9-15.9); WHITE BLOOD COUNT 3.6 K/mm3 (4.0-10.0)
[2020-08-11] MEDS ORDERED: DIPHTH,PERTUSS(ACELL),TET 0.5 ML DISP.SYRIN IM ONE (00:11)
[2020-08-11] MEDS ORDERED: LORazepam 1 MG TABLET PO PRN (02:17)
[2020-08-11] MEDS ORDERED: LACTULOSE 20 GM/30 ML UDC (FOR ORAL USE ONLY) PO PRN (02:27)
--- NOTE | 2020-08-11 02:38 | PN ---
Teaching Attending Note Name of Resident: Bernadette Anne ATTENDING PHYSICIAN STATEMENT I saw and evaluated the patient. I reviewed the resident's note and discussed the case with the resident. I agree with the resident's findings and plan as documented. SUBJECTIVE: Patient is a 59 year old man with a PMH of Alcohol abuse, Liver cirrhosis, GI bleeding, PRBC transfusion, Anemia, Ascites and HTN who returns to the hospital with complaint of a fall at home after signing out AMA few hours ago. Denies any head strike or loss of consciousness. He was admitted yesterday from [facility] with bruising to arms and abdomen and noted to have severe pancytopenia. He received platelet transfusion before signing out AMA and platelet count improved from 9,000 to 55,000. Hematology was consulted. Patient denies chest pain, shortness of breath, abdominal pain, headache, palpitations, dizziness, fever, chills, nausea, vomiting, diarrhea, constipation, dysuria, frequency, urgency, melena, hematochezia or hematuria. Denies tobacco or illicit drug use. No sick contacts or recent travels. Family history of DM in mother. OBJECTIVE: Alert Vital Signs Period Temp Pulse Resp BP Sys/Schumacher Pulse Ox Last 24 Hr 97.9 F-98.1 F 92-98 17-18 107-129/53-85 98-99 HEENT: No Jaundice, eye redness or discharge, PERRLA, EOMI. Normocephalic, atraumatic. External ears are normal and hearing is grossly intact. No nasal discharge. Neck: Supple, nontender. No palpable adenopathy or thyromegaly. No JVD Chest: Good effort. Clear to auscultation and percussion. Heart: Regular. No S3, rub or murmur Abdomen: Not distended, soft, nontender and no HSM. No rebound or guarding. Normal bowel sounds. Ext: Peripheral pulses intact. No leg edema. Skin: Warm and dry. Diffuse petechiae and brusing on trunk and arm; ecchymosis on abdomen and arms. Neuro: Alert. Oriented x3. Anxious. CN 2-12 grossly intact. Sensation grossly intact in all four extremities and DTR are symmetric. Psych: Appropriate mood and affect. Good insight. Home Medications Medication Instructions Recorded Unobtainable 08/09/20 Abnormal Lab Results 08/10/20 23:28 WBC 3.6 L RBC 3.07 L Hgb 8.7 L Hct 27.0 L RDW 19.5 H Plt Count 55 L D Current Medications Generic Name Dose Route Start Last Admin Trade Name Freq PRN Reason Stop Dose Admin Folic Acid 1 mg 08/11/20 10:00 Folic Acid - PO DAILY [facility] Lactulose 20 gm 08/11/20 02:27 Cephulac (Oral Use) PO TID PRN CONSTIPATION Lorazepam 1 mg 08/12/20 05:00 Ativan - PO 08/12/20 23:01 0500,1100,1700,2300 BEKA Lorazepam 1 mg 08/11/20 02:17 Ativan - PO 08/13/20 00:00 Q4H PRN Symptoms of Withdrawal Lorazepam 2 mg 08/11/20 05:00 Ativan - PO 08/11/20 23:01 0500,1100,1700,2300 BEKA Lorazepam 0.5 mg 08/13/20 05:00 Ativan - PO 08/13/20 23:01 Q6H BEKA Lorazepam 0.5 mg 08/13/20 00:00 Ativan - PO 08/14/20 00:00 Q4H PRN Symptoms of Withdrawal Lorazepam 0.5 mg 08/14/20 05:00 Ativan - PO 08/14/20 05:01 ONCE ONE Multivitamins/Minerals/Vitamin C 1 tab 08/11/20 10:00 Tab-A-Vit - PO DAILY [facility] Nadolol 20 mg 08/11/20 10:00 Corgard - PO DAILY [facility] Thiamine HCl 100 mg 08/11/20 10:00 Vitamin B1 - PO DAILY [facility] ASSESSMENT AND PLAN: 1. Fall/Pancytopenia/Severe thrombocytopenia - Will get urine toxicology, blood cultures, blood alcohol level and continue workup for pancytopenia started yesterday. No evidence of acute intracranial pathology on noncontrast head CT scan. C-spine CT did not show any fracture or subluxation. Will repeat head CT in 24 hours and trend platelet count. EKG is pending. Will check serum magnesium, and continue IV and PO KCL. [facility] to telemetry, [facility] and do neurochecks. Implement seizure, fall and aspiration precautions. Treat with IV Banana bag, thiamine and folic acid. Monitor and replete electrolytes (Ca,Mg,K,P). Counseled patient about abstaining from alcohol. Will consult printing specialist and refer to alcohol detox upon discharge. Viral testing for COVID-19 ordered and patient placed on airborne, droplet and contact isolation. Will continue comprehensive care for all of patients comorbid conditions. 2. Hypoalbuminemia - Possibly due to combined effects of malnutrition and inflammation associated with comorbid conditions. Will ensure adequate dietary protein intake and also consult orthopedic coder. Urinalysis pending. 3. Hypertension Will restart suitable outpatient antihypertensive drugs when clinically appropriate. Subsequently, will revise regimen to ensure [id number] excellent BP control. Patient counseled on the injurious effects of uncontrolled hypertension. Nonpharmacologic measures to control hypertension like weight loss, salt restriction and exercise stressed. Importance of adherence to treatment regimen and attainment of normotension emphasized. 4. DVT prophylaxis - Early ambulation; cannot use Heparin or SCD due to very low platelets. 5. Advance directives - Full code
[2020-08-11] MEDS ORDERED: POTASSIUM CHLORIDE ORAL LIQUID 20 MEQ/15 ML PO ONE (02:50)
--- NOTE | 2020-08-11 03:25 | HP ---
CHIEF COMPLAINT: fall PCP: none GI:Dr. Fabby Castro Nurse Educator: Dr. Xiang Miranda HISTORY OF PRESENT ILLNESS: Patient is a 59 Y M with past medical history of Cirrhosis, anemia, and HTN, presented from [facility] yesterday for evaluation of bruising to extremities and left abdomen. Patient was found to be pancytopenic, with platelet count of 9. Patient received 4u of platelets. He was also noted to have CIWA of 8 and was started on alcohol detox. Patient left against medical advice. Patient reported to have gone home, stated that he was walking around and tripped and fell. No loss of consciousness, but hit his head and R knee. Denies fever, chills, headache, focal weakness, dizziness, chest pain, shortness of breath,nausea, vomiting, diarrhea, constipation. ER course was notable for: (1)Head/Cervical CT - no acute intracranial pathology, await final read (2) (3) Recent Travel:denies PAST MEDICAL HISTORY: Cirrhosis anemia HTN PAST SURGICAL HISTORY: Left shoulder surgery Social History: Smoking:denies Alcohol:drinks 3-4 beers/day in the last 3 weeks, previous etoh drinker quit a year ago Drugs: denies Allergies No Known Allergies Allergy (Verified 08/10/20 22:51) HOME MEDICATIONS: Home Medications Medication Instructions Recorded Unobtainable 08/09/20 REVIEW OF SYSTEMS CONSTITUTIONAL: Absent: fever, chills, diaphoresis, generalized weakness, malaise, loss of appetite, weight change HEENT: Absent: rhinorrhea, nasal congestion, throat pain, throat swelling, difficulty swallowing, mouth swelling, ear pain, eye pain, visual changes CARDIOVASCULAR: Absent: chest pain, syncope, palpitations, irregular heart rate, lightheadedness, peripheral edema RESPIRATORY: Absent: cough, shortness of breath, dyspnea with exertion, orthopnea, wheezing, stridor, hemoptysis GASTROINTESTINAL: Absent: abdominal pain, abdominal distension, nausea, vomiting, diarrhea, constipation, melena, hematochezia GENITOURINARY: Absent: dysuria, frequency, urgency, hesitancy, hematuria, flank pain, genital pain MUSCULOSKELETAL: Absent: myalgia, arthralgia, joint swelling, back pain, neck pain SKIN: Absent: rash, itching, pallor HEMATOLOGIC/IMMUNOLOGIC: Absent: easy bleeding, easy bruising, lymphadenopathy, frequent infections ENDOCRINE: Absent: unexplained weight gain, unexplained weight loss, heat intolerance, cold intolerance NEUROLOGIC: Absent: headache, focal weakness or paresthesias, dizziness, unsteady gait, seizure, mental status changes, bladder or bowel incontinence PSYCHIATRIC: Absent: anxiety, depression, suicidal or homicidal ideation, hallucinations. PHYSICAL EXAMINATION Vital Signs - 24 hr 08/10/20 08/11/20 08/11/20 22:50 02:03 02:13 Temperature 98.1 F 97.9 F Pulse Rate 98 H Pulse Rate [ 92 H Right] Respiratory 18 17 Rate Blood Pressure 107/53 L Blood Pressure 129/85 [Arm] O2 Sat by Pulse 98 99 100 Oximetry (%) GENERAL: The patient is awake, alert, and fully oriented, in no acute distress. HEAD: +bruise on L forehead EYES: PERRLA, EOMI, sclera anicteric, conjunctiva clear. ENT: moist mucous membranes. NECK: supple. LUNGS: Breath sounds equal, clear to auscultation bilaterally HEART: Regular rate and rhythm, S1, S2 ABDOMEN: Soft, mildly distended, mild diffuse tenderness, normoactive bowel sounds, +LLQ bruising EXTREMITIES: 2+ pulses, warm, well-perfused, no edema. +b/l LE bruises NEUROLOGICAL: Cranial nerves II through XII grossly intact. Normal speech PSYCH: Normal mood, normal affect. SKIN: Warm, dry, normal turgor Laboratory Results - last 24 hr 08/10/20 23:28 WBC 3.6 L RBC 3.07 L Hgb 8.7 L Hct 27.0 L MCV 87.7 MCH 28.3 MCHC 32.3 RDW 19.5 H Plt Count 55 L D MPV 8.6 Absolute Neuts (auto) 3.0 Neutrophils % 81.7 D Lymphocytes % 9.8 D Monocytes % 7.7 Eosinophils % 0.3 Basophils % 0.5 Nucleated RBC % 0 ASSESSMENT/PLAN: Patient is a 59 year old male with history of Cirrhosis, Chronic Anemia, and HTN, sent from [facility] for bruising of LE and abdomen. Platelet count of 9. #Pancytopenia -leukopenia, anemia, and thrombocytopenia likely 2/2 liver cirrhosis and splenomegaly, r/o infection -WBC 2, H/H 8.6/26.4, Platelets 9 on admission yesterday, improved today WBC 3.6, H/H 8.7/27, platelets 55 -s/p 4u platelets yesterday -no fever or GREGG, unlikely hemolysis, will request peripheral smear, LDH, hapto globin to r/o -Heme-Onc consulted. Recs appreciated. -will add Mandy test, blood cultures -utox -B12 and folate elevated, iron wnl #Alcohol withdrawal -CIWA 8 -will start ativan protocol -MV, folate and thiamine -fall risk, aspiration and seizure precaution #Liver Cirrhosis -CTAP: findings consistent with cirrhosis including moderate amount of ascites, splenomegaly, varices and recanalized umbilical vein. -will follow up records from [facility] on previous work-ups done -GI consulted. Recommendations appreciated. -start Nadolol 20mg daily -recommend diagnostic paracentesis once platelet count permits. -Fluid to be sent for cell count with differential, culture, cytology, total protein, albumin, with hepatic panel drawn the same day as the paracentesis performed. #Fall -likely mechanical 2/2 unsteady gait 2/2 EtOH use -Physical therapy -Head/Cervical CT - no acute intracranial pathology, await final read -fall risk precautions, neurochecks #HTN -On Nadolol 20mg daily for cirrhosis #FEN -Not on any standing fluids -hypoK repleted, routine bmp monitoring -sodium controlled diet #Prophylaxis -SCDs -hold chemical ppx in light of thrombocytopenia #Disposition -full code -admit to med surg Family Medical History Family History: As Documented Visit type - Emergency Visit Emergency Visit: Yes ED Registration Date: 08/11/20 Care time: The patient presented to the Emergency Department on the above date and was hospitalized for further evaluation of their emergent condition. - New Patient This patient is new to me today: No - Critical Care Critical Care patient: No ATTENDING PHYSICIAN STATEMENT I saw and evaluated the patient. I reviewed the resident's note and discussed the case with the resident. I agree with the resident's findings and plan as documented. SUBJECTIVE: OBJECTIVE: ASSESSMENT AND PLAN:
[2020-08-11] MEDS ORDERED: PNEUMOC 13-VAL CONJ-DIP CRM/PF 0.5 ML DISP.SYRIN IM ONE (05:08)
[2020-08-11] MEDS: LORazepam 1 MG TABLET PO SCH ×4 (05:16→22:31)
--- NOTE | 2020-08-11 07:29 | PN ---
Progress Note (short form) - Note Progress Note: SUBJECTIVE: Feels okay, mild abdominal discomfort. No fever/chills/humble sea/vomiting/melena/hematochezia. OBJECTIVE: Afebrile, hemodynamically Stable. Tremor of outstretched arms/tongue. Apparently wanted to escape from the floor earlier this morning, now AAO x 3. Denies headache/visual disturbance/limb numbness/weakness. Last Vital Signs Temp Pulse Resp BP Pulse Ox 99.2 F 97 H 20 152/68 100 08/11/20 04:24 08/11/20 04:24 08/11/20 04:24 08/11/20 04:24 08/11/20 04:24 Heart - S1, S2, RRR Lungs - clear to auscultation Abdomen - Distended, Ascites +. Mild generalized tenderness. Bowel Sounds normal. Extremities - trace edema, no calf tenderness. L shoulder discomfort/reduced ROM - chronic. MS - Some bruising on extremities and small area on abdomen. Neuro - AAO x 3. Tone/Power normal. Laboratory Results - last 24 hr 08/10/20 08/11/20 08/11/20 23:28 10:38 10:38 WBC 3.6 L RBC 3.07 L Hgb 8.7 L Hct 27.0 L MCV 87.7 MCH 28.3 MCHC 32.3 RDW 19.5 H Plt Count 55 L D MPV 8.6 Absolute Neuts (auto) 3.0 Neutrophils % 81.7 D Lymphocytes % 9.8 D Monocytes % 7.7 Eosinophils % 0.3 Basophils % 0.5 Nucleated RBC % 0 PT with INR 18.60 H INR 1.57 H PTT (Actin FS) 33.0 Sodium Potassium Chloride Carbon Dioxide Anion Gap BUN Creatinine Est GFR (CKD-EPI)AfAm Est GFR (CKD-EPI)NonAf Random Glucose Calcium Phosphorus Magnesium Total Bilirubin AST ALT Alkaline Phosphatase Troponin I 0.02 Total Protein Albumin TSH 2.36 D 08/11/20 08/11/20 10:38 10:38 WBC 2.4 L RBC 2.82 L Hgb 7.8 L Hct 24.4 L MCV 86.4 MCH 27.6 MCHC 31.9 L RDW 19.3 H Plt Count 19 L* D MPV 9.3 Absolute Neuts (auto) 1.6 Neutrophils % 65.5 Lymphocytes % 19.5 D Monocytes % 13.5 H Eosinophils % 0.8 D Basophils % 0.7 Nucleated RBC % 0 PT with INR INR PTT (Actin FS) Sodium 141 Potassium 3.4 L Chloride 107 Carbon Dioxide 25 Anion Gap 9 BUN 11.5 Creatinine 0.7 Est GFR (CKD-EPI)AfAm 121.41 Est GFR (CKD-EPI)NonAf 104.76 Random Glucose 97 Calcium 8.0 L Phosphorus 1.2 L Magnesium 1.4 L Total Bilirubin 3.7 H AST 134 H ALT 29 Alkaline Phosphatase 221 H Troponin I Total Protein 7.8 Albumin 2.9 L TSH Current Medications Generic Name Dose Route Start Last Admin Trade Name Freq PRN Reason Stop Dose Admin Folic Acid 1 mg 08/11/20 10:00 08/11/20 10:27 Folic Acid - PO 1 mg DAILY BEKA Administration Lactulose 20 gm 08/11/20 14:00 Cephulac (Oral Use) PO TID [facility]KA Lorazepam 1 mg 08/12/20 05:00 Ativan - PO 08/12/20 23:01 0500,1100,1700,2300 BEKA Lorazepam 1 mg 08/11/20 02:17 Ativan - PO 08/13/20 00:00 Q4H PRN Symptoms of Withdrawal Lorazepam 2 mg 08/11/20 05:00 08/11/20 10:26 Ativan - PO 08/11/20 23:01 2 mg 0500,1100,1700,2300 BEKA Administration Lorazepam 0.5 mg 08/13/20 05:00 Ativan - PO 08/13/20 23:01 Q6H BEKA Lorazepam 0.5 mg 08/13/20 00:00 Ativan - PO 08/14/20 00:00 Q4H PRN Symptoms of Withdrawal Lorazepam 0.5 mg 08/14/20 05:00 Ativan - PO 08/14/20 05:01 ONCE ONE Multivitamins/Minerals/Vitamin C 1 tab 08/11/20 10:00 08/11/20 10:27 Tab-A-Vit - PO 1 tab DAILY BEKA Administration Nadolol 20 mg 08/11/20 10:00 08/11/20 10:27 Corgard - PO 20 mg DAILY BEKA Administration Pneumococcal 13-Valent Conj Vacc 0.5 ml 08/11/20 05:08 Prevnar 13 Syringe - IM 08/11/20 05:09 .ONCE ONE Thiamine HCl 100 mg 08/11/20 10:00 08/11/20 10:27 Vitamin B1 - PO 100 mg DAILY BEKA Administration Home Medications Medication Instructions Recorded Unobtainable 08/09/20 ASSESSMENT AND PLAN: 59 year old male with history of Cirrhosis, Chronic Anemia, and HTN, sent from [facility] (where he was undergoing alcohol detox) for bruising, found to have Platelets of 9 and sent to the ED, from where he left A. He subsequently sustained a fall at home and returned to the ED - denies preceding CP/palpitations. Currently denies headache/visual disturbance/limb numbness/weakness. Denies melena/hematochezia/hematemesis/hemoptysis. 1. Pancytopenia (Leukopenia/Anemia/thrombocytopenia) - likely secondary to Liver Cirrhosis CT A/P - Cirrhosis/Ascites/Varices WBC 2.4, H/H 7.8/24.4, Platelets 19 (s/p 4 units PRBCs 08/10) Iron Deficiency Anemia - No active bleeding No fever/GREGG, unlikely hemolysis. Peripheral smear requested, LDH mildly elevated Hematology evaluation re-requested. No signs of infection - GI recommend Paracentesis once platelet levels allow - no empiric Abx therapy. Will need Iron supplementation on discharge. Records requested from [facility]. 2. Acute Alcohol Withdrawal Ativan as per CIWA protocol Teceived Banana Bag MVI, Thiamine, Folic Acid. 3. Ascites and Varices secondary to Portal Hypertension due to Liver Cirrhosis Evaluated by GI - recommend Paracentesis once platelet level allows, started on nadolol. Records requested from [facility] for information regarding recent EGD/GI work up and list of home meds. 4. Elevated Ammonia secondary to Cirrhosis - no evidence of acute hepatic encephalopathy. Will give lactulose to prevent encephalopathy. Repeat Ammonia level requested. 5. HTN - Need to reconcile meds. Recommended Nadolol by GI in the interim. 6. Fall with HI at home - CT Head/CT C-spine reportedly without acute changes, awaiting official report. Repeat CT Head this evening given severe thrombocytopena. 7. Hypokalemia/Hypomagnesemia/Hypophosphatemia - repleted. DVT Px - Heparin/Lovenox held due to severe Thrombocytopenia Visit type - Emergency Visit Emergency Visit: Yes ED Registration Date: 08/11/20 Care time: The patient presented to the Emergency Department on the above date and was hospitalized for further evaluation of their emergent condition. - New Patient This patient is new to me today: No - Critical Care Critical Care patient: No - Discharge Referral Referred to [facility] No
[2020-08-11] MEDS: FOLIC ACID 1 MG TABLET (FP) PO SCH (10:27)
[2020-08-11] MEDS: NADOLOL 20 MG TABLET (FP) PO SCH (10:27)
[2020-08-11] MEDS: THIAMINE HCL 100 MG TABLET (FP) PO SCH (10:27)
[2020-08-11] MEDS: MULTIVITAMINS (DAILY MVI) TABLET (FP) PO SCH (10:27)
[2020-08-11 10:52] LABS: BASO % 0.7 % (0-2.0); EOS % 0.8 % (0-4.5); HEMATOCRIT 24.4 % (35.4-49); HEMOGLOBIN 7.8 GM/dL (11.7-16.9); LYMPH % 19.5 % (8-40); MCH 27.6 pg (25.7-33.7); MCHC 31.9 g/dl (32.0-35.9); MEAN CELL VOLUME 86.4 fl (80-96); MEAN PLT VOLUME 9.3 fl (7.5-11.1); MONO % 13.5 % (3.8-10.2); NEUT % 65.5 % (42.8-82.8); RBC 2.82 M/mm3 (4.00-5.60); RDW 19.3 % (11.9-15.9); WHITE BLOOD COUNT 2.4 K/mm3 (4.0-10.0)
[2020-08-11 10:57] LABS: PLATELET COUNT 19 K/MM3 (134-434)
[2020-08-11 10:58] LABS: INR 1.57 (0.83-1.09); PROTHROMBIN TIME (PATIENT) 18.6 SEC (9.7-13.0)
[2020-08-11 11:18] LABS: ALBUMIN 2.9 g/dl (3.4-5.0); BILIRUBIN,TOTAL 3.7 mg/dL (0.2-1); BLOOD UREA NITROGEN 11.5 mg/dL (7-18); CREATININE 0.7 mg/dL (0.55-1.3); MAGNESIUM 1.4 mg/dL (1.8-2.4); PHOSPHOROUS 1.2 mg/dL (2.5-4.9); POTASSIUM 3.4 mmol/L (3.5-5.1); TOT PROT 7.8 g/dl (6.4-8.2)
[2020-08-11] MEDS ORDERED: POTASSIUM PHOSPHATE 30 MM in DEXTROSE 5%-WATER - 500 ML IVPB ONE (11:59)
[2020-08-11] MEDS ORDERED: MAGNESIUM SULF 50% (8.12 MEQ/2 ML-1 GM VIAL) IVPB ONE (11:59)
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
[2020-08-11] MEDS: LACTULOSE 20 GM/30 ML UDC (FOR ORAL USE ONLY) PO SCH ×2 (13:23→21:15)
[2020-08-11 13:45] LABS: INR 1.66 (0.83-1.09); PROTHROMBIN TIME (PATIENT) 19.7 SEC (9.7-13.0)
[2020-08-11 13:47] LABS: ACTIVATED PTT 32.6 SECONDS (25.2-36.5)
[2020-08-11] MEDS ORDERED: PNEUMOCOCCAL 23 VACCINE 0.5 ML VIAL IM ONE (15:00)
[2020-08-11] MEDS: KCL 10 MEQ IVPB 10 MEQ/100 ML INFUS.BAG IVPB SCH (15:54)
[2020-08-11 19:57] LABS: EPI CELLS 1 /uL (0-25.1); HYALINE CASTS 1 /uL (0-3.1); PH,URINE 7.5 (5.0-8.0); URINE APPEARANCE CLEAR; URINE BACTERIA 35 /uL (0-1359); URINE BILIRUBIN NEGATIVE (NEGATIVE); URINE COLOR YELLOW; URINE GLUCOSE (UA) NEGATIVE (NEGATIVE); URINE KETONE NEGATIVE (NEGATIVE); URINE LEUK ESTERASE NEGATIVE (NEGATIVE); URINE NITRITE NEGATIVE (NEGATIVE); URINE PROTEIN 2+ (NEGATIVE); URINE RBC 116 /uL (0-23.9); URINE UROBILINOGEN 0.2 mg/dL (0.2-1.0); URINE WBC 3 /uL (0-25.8)
[2020-08-11 21:42] LABS: YEAST NONE SEEN (NEGATIVE)
[2020-08-11 21:59] LABS: COCAINE, UR NEGATIVE ng/ml (CUTOFF=300); PHENCYCLIDINE,URINE NEGATIVE ng/ml (CUTOFF=25); URINE BARBITURATES NEGATIVE ng/ml (CUTOFF=200); URINE BENZODIAZEPINES NEGATIVE ng/ml (CUTOFF=200)
[2020-08-11 22:01] LABS: METHADONE, UR NEGATIVE ng/ml (CUTOFF=300); OPIATES, URI NEGATIVE ng/ml (CUTOFF=300); URINE AMPHETAMINES NEGATIVE ng/ml (CUTOFF=500)
[2020-08-11 23:04] LABS: BASO % 0.3 % (0-2.0); EOS % 1.7 % (0-4.5); HEMATOCRIT 21.7 % (35.4-49); LYMPH % 19.4 % (8-40); MCH 27.9 pg (25.7-33.7); MCHC 32.3 g/dl (32.0-35.9); MEAN CELL VOLUME 86.5 fl (80-96); MEAN PLT VOLUME 9.4 fl (7.5-11.1); MONO % 13.8 % (3.8-10.2); NEUT % 64.8 % (42.8-82.8); RBC 2.51 M/mm3 (4.00-5.60); RDW 19.5 % (11.9-15.9); WHITE BLOOD COUNT 2.5 K/mm3 (4.0-10.0)
[2020-08-11 23:06] LABS: PLATELET COUNT 18 K/MM3 (134-434)
[2020-08-12] MEDS ORDERED: LORazepam 2 MG/ML SDV VIAL IM ONE (01:14)
[2020-08-12] MEDS: LORazepam 1 MG TABLET PO SCH ×4 (05:27→23:59)
[2020-08-12] MEDS: LACTULOSE 20 GM/30 ML UDC (FOR ORAL USE ONLY) PO SCH ×2 (05:27→13:12)
[2020-08-12 09:06] LABS: INR 1.82 (0.83-1.09); PROTHROMBIN TIME (PATIENT) 21.6 SEC (9.7-13.0)
[2020-08-12 09:09] LABS: ACTIVATED PTT 30.3 SECONDS (25.2-36.5)
[2020-08-12 09:18] LABS: BASO % 0.4 % (0-2.0); LYMPH % 21.6 % (8-40); MCH 28.5 pg (25.7-33.7); MCHC 32.7 g/dl (32.0-35.9); MEAN CELL VOLUME 87.2 fl (80-96); MEAN PLT VOLUME 9.6 fl (7.5-11.1); MONO % 15.5 % (3.8-10.2); NEUT % 60.5 % (42.8-82.8); PLATELET COUNT 16 K/MM3 (134-434); RDW 19.4 % (11.9-15.9); WHITE BLOOD COUNT 2.2 K/mm3 (4.0-10.0)
[2020-08-12 09:21] LABS: ALBUMIN 2.3 g/dl (3.4-5.0); BILIRUBIN,TOTAL 3.5 mg/dL (0.2-1); BLOOD UREA NITROGEN 8.6 mg/dL (7-18); CALCIUM 7.9 mg/dL (8.5-10.1); CREATININE 0.4 mg/dL (0.55-1.3); MAGNESIUM 1.4 mg/dL (1.8-2.4); PHOSPHOROUS 2.7 mg/dL (2.5-4.9); POTASSIUM 3.5 mmol/L (3.5-5.1); TOT PROT 6.5 g/dl (6.4-8.2)
[2020-08-12] MEDS: NADOLOL 20 MG TABLET (FP) PO SCH (09:45)
[2020-08-12] MEDS: MULTIVITAMINS (DAILY MVI) TABLET (FP) PO SCH (09:45)
[2020-08-12] MEDS: FOLIC ACID 1 MG TABLET (FP) PO SCH (09:45)
[2020-08-12] MEDS: THIAMINE HCL 100 MG TABLET (FP) PO SCH (09:45)
[2020-08-12 09:46] LABS: HEMOGLOBIN 6.9 GM/dL (11.7-16.9)
[2020-08-12] MEDS ORDERED: MAGNESIUM SULF 50% (8.12 MEQ/2 ML-1 GM VIAL) IVPB ONE (09:57)
[2020-08-12 11:05] LABS: PLATELET ESTIMATE DECREASED
--- NOTE | 2020-08-12 12:51 | PN ---
Physical Exam: SUBJECTIVE: Patient seen and examined at bedside. Overnight at 1:00 AM Patient attempted to exit bed without assistance and was subsequently put on continued observation. OBJECTIVE: Vital Signs Period Temp Pulse Resp BP Sys/Schumacher Pulse Ox Last 24 Hr 98.1 F-98.9 F 85-98 20-20 137-149/70-95 97-106 GENERAL: AAOx3, patient is confused HEENT: NCAT, PERRLA, EOMI, sclera anicteric, conjunctiva clear, oropharynx clear w/o exudates. MMM. NECK: Normal ROM, supple, no lymphadenopathy, JVD, or masses LUNGS: CTABL no wheezes/ rhonchi/ rales. No distress, speaks in full sentences. No increased work of breathing. HEART: RRR, normal S1 S2, no M/R/G, peripheral pulses 2+ and equal b/l ABDOMEN: protoudant abdomen with ascities. +ecchymosis, +fluid wave. MSK: ROM WNL EXTREMITIES: Normal inspection. No peripheral edema. No clubbing or cyanosis. NEUROLOGICAL: CN II-XII intact. Normal speech, normal gait, no focal sensorimotor deficits. SKIN: Warm, Dry, normal turgor, no rashes or lesions noted Laboratory Results - last 24 hr CBC, BMP 08/12/20 07:45 08/12/20 07:45 08/11/20 08/11/20 08/11/20 13:30 13:30 13:30 WBC RBC Hgb Hct MCV MCH MCHC RDW Plt Count MPV Absolute Neuts (auto) Neutrophils % Lymphocytes % Monocytes % Eosinophils % Basophils % Nucleated RBC % Platelet Estimate PT with INR 19.70 H INR 1.66 H PTT (Actin FS) 32.6 Fibrinogen 173.0 L Sodium Potassium Chloride Carbon Dioxide Anion Gap BUN Creatinine Est GFR (CKD-EPI)AfAm Est GFR (CKD-EPI)NonAf Random Glucose Calcium Phosphorus Magnesium Total Bilirubin AST ALT Alkaline Phosphatase Ammonia 45.00 H LD Total Total Protein Albumin Urine Color Urine Appearance Urine pH Ur Specific Williams Urine Protein Urine Glucose (UA) Urine Ketones Urine Blood Urine Nitrite Urine Bilirubin Urine Urobilinogen Ur Leukocyte Esterase Urine WBC (Auto) Urine RBC (Auto) Urine Casts (Auto) U Epithel Cells (Auto) Urine Bacteria (Auto) Urine Yeast (Auto) Opiates Screen Methadone Screen Barbiturate Screen Phencyclidine Screen Ur Amphetamines Screen MDMA (Ecstasy) Screen Benzodiazepines Screen Cocaine Screen U Marijuana (THC) Screen Blood Type Antibody Screen Crossmatch 08/11/20 08/11/20 08/11/20 18:35 18:35 22:20 WBC 2.5 L RBC 2.51 L Hgb 7.0 L Hct 21.7 L MCV 86.5 MCH 27.9 MCHC 32.3 RDW 19.5 H Plt Count 18 L* MPV 9.4 Absolute Neuts (auto) 1.6 Neutrophils % 64.8 Lymphocytes % 19.4 Monocytes % 13.8 H Eosinophils % 1.7 D Basophils % 0.3 Nucleated RBC % 0 Platelet Estimate PT with INR INR PTT (Actin FS) Fibrinogen Sodium Potassium Chloride Carbon Dioxide Anion Gap BUN Creatinine Est GFR (CKD-EPI)AfAm Est GFR (CKD-EPI)NonAf Random Glucose Calcium Phosphorus Magnesium Total Bilirubin AST ALT Alkaline Phosphatase Ammonia LD Total Total Protein Albumin Urine Color Yellow Urine Appearance Clear Urine pH 7.5 Ur Specific Williams 1.010 Urine Protein 2+ H Urine Glucose (UA) Negative Urine Ketones Negative Urine Blood 3+ H Urine Nitrite Negative Urine Bilirubin Negative Urine Urobilinogen 0.2 Ur Leukocyte Esterase Negative Urine WBC (Auto) 3 Urine RBC (Auto) 116 Urine Casts (Auto) 1 U Epithel Cells (Auto) 1 Urine Bacteria (Auto) 35 Urine Yeast (Auto) None seen Opiates Screen Negative Methadone Screen Negative Barbiturate Screen Negative Phencyclidine Screen Negative Ur Amphetamines Screen Negative MDMA (Ecstasy) Screen Negative Benzodiazepines Screen Negative Cocaine Screen Negative U Marijuana (THC) Screen Negative Blood Type Antibody Screen Crossmatch 08/12/20 08/12/20 08/12/20 07:45 07:45 07:45 WBC RBC Hgb Hct MCV MCH MCHC RDW Plt Count MPV Absolute Neuts (auto) Neutrophils % Lymphocytes % Monocytes % Eosinophils % Basophils % Nucleated RBC % Platelet Estimate PT with INR 21.60 H INR 1.82 H PTT (Actin FS) 30.3 Fibrinogen 140.0 L Sodium 138 Potassium 3.5 Chloride 106 Carbon Dioxide 26 Anion Gap 7 L BUN 8.6 Creatinine 0.4 L Est GFR (CKD-EPI)AfAm 152.81 Est GFR (CKD-EPI)NonAf 131.85 Random Glucose 91 Calcium 7.9 L Phosphorus 2.7 Magnesium 1.4 L Total Bilirubin 3.5 H AST 97 H ALT 23 Alkaline Phosphatase 167 H Ammonia LD Total 337 H Total Protein 6.5 Albumin 2.3 L Urine Color Urine Appearance Urine pH Ur Specific Williams Urine Protein Urine Glucose (UA) Urine Ketones Urine Blood Urine Nitrite Urine Bilirubin Urine Urobilinogen Ur Leukocyte Esterase Urine WBC (Auto) Urine RBC (Auto) Urine Casts (Auto) U Epithel Cells (Auto) Urine Bacteria (Auto) Urine Yeast (Auto) Opiates Screen Methadone Screen Barbiturate Screen Phencyclidine Screen Ur Amphetamines Screen MDMA (Ecstasy) Screen Benzodiazepines Screen Cocaine Screen U Marijuana (THC) Screen Blood Type Antibody Screen Crossmatch 08/12/20 08/12/20 07:45 07:45 WBC 2.2 L RBC 2.40 L Hgb 6.9 L* Hct 21.0 L MCV 87.2 MCH 28.5 MCHC 32.7 RDW 19.4 H Plt Count 16 L* MPV 9.6 Absolute Neuts (auto) 1.3 L Neutrophils % 60.5 Lymphocytes % 21.6 Monocytes % 15.5 H Eosinophils % 2.0 Basophils % 0.4 Nucleated RBC % 0 Platelet Estimate Decreased PT with INR INR PTT (Actin FS) Fibrinogen Sodium Potassium Chloride Carbon Dioxide Anion Gap BUN Creatinine Est GFR (CKD-EPI)AfAm Est GFR (CKD-EPI)NonAf Random Glucose Calcium Phosphorus Magnesium Total Bilirubin AST ALT Alkaline Phosphatase Ammonia LD Total Total Protein Albumin Urine Color Urine Appearance Urine pH Ur Specific Williams Urine Protein Urine Glucose (UA) Urine Ketones Urine Blood Urine Nitrite Urine Bilirubin Urine Urobilinogen Ur Leukocyte Esterase Urine WBC (Auto) Urine RBC (Auto) Urine Casts (Auto) U Epithel Cells (Auto) Urine Bacteria (Auto) Urine Yeast (Auto) Opiates Screen Methadone Screen Barbiturate Screen Phencyclidine Screen Ur Amphetamines Screen MDMA (Ecstasy) Screen Benzodiazepines Screen Cocaine Screen U Marijuana (THC) Screen Blood Type O POSITIVE Antibody Screen Negative Crossmatch See Detail Active Medications Generic Name Dose Route Start Last Admin Trade Name Freq PRN Reason Stop Dose Admin Folic Acid 1 mg 08/11/20 10:00 08/12/20 09:45 Folic Acid - PO 1 mg DAILY BEKA Administration Lactulose 20 gm 08/11/20 14:00 08/12/20 05:27 Cephulac (Oral Use) PO 20 gm TID BEKA Administration Lorazepam 1 mg 08/12/20 05:00 08/12/20 10:42 Ativan - PO 08/12/20 23:01 1 mg 0500,1100,1700,2300 BEKA Administration Lorazepam 1 mg 08/11/20 02:17 Ativan - PO 08/13/20 00:00 Q4H PRN Symptoms of Withdrawal Lorazepam 0.5 mg 08/13/20 05:00 Ativan - PO 08/13/20 23:01 Q6H BEKA Lorazepam 0.5 mg 08/13/20 00:00 Ativan - PO 08/14/20 00:00 Q4H PRN Symptoms of Withdrawal Lorazepam 0.5 mg 08/14/20 05:00 Ativan - PO 08/14/20 05:01 ONCE ONE Multivitamins/Minerals/Vitamin C 1 tab 08/11/20 10:00 08/12/20 09:45 Tab-A-Vit - PO 1 tab DAILY BEKA Administration Nadolol 20 mg 08/11/20 10:00 08/12/20 09:45 Corgard - PO 20 mg DAILY BEKA Administration Pneumococcal Polyvalent Vaccine 0.5 ml 08/11/20 15:45 Pneumovax - IM 08/11/20 15:46 .ONCE ONE Thiamine HCl 100 mg 08/11/20 10:00 08/12/20 09:45 Vitamin B1 - PO 100 mg DAILY BEKA Administration ASSESSMENT/PLAN: Patient is a 59 year old male with history of Cirrhosis, Chronic Anemia, and HTN, sent from [facility] for bruising of LE and abdomen. Admitted for pancytopenia, alcoholic withdrawal, and liver cirrhosis. #Pancytopenia -leukopenia, anemia, and thrombocytopenia likely 2/2 liver cirrhosis and splenomegaly -Platelets 9 on admission -s/p 4u platelets today platelet level is 16 -Hg level today was 6.9 ---> 1U transfused today -Heme-Onc on board; f/u reccs -B12 and folate elevated, iron wnl -records requested from [facility] #Alcohol withdrawal -c/w ativan protocol -c/w MV, folate and thiamine #Liver Cirrhosis -CTAP: findings consistent with cirrhosis including moderate amount of ascites, splenomegaly, varices and recanalized umbilical vein. -will follow up records from [facility] on previous work-ups done -c/w Lactulose 20 mg TID -Nadolol 20mg daily -recommend diagnostic paracentesis once platelet count is increased and stable -Fluid to be sent for cell count with differential, culture, cytology, total protein, albumin, with hepatic panel drawn the same day as the paracentesis performed. #Mechanical Fall -likely 2/2 unsteady gait from EtOH use -Physical therapy on board -repeat head CT negative for bleeding -fall risk precautions, neurochecks #HTN -On Nadolol 20mg daily for cirrhosis #FEN -Not on any standing fluids -Mg repleted today -sodium controlled diet #Prophylaxis -DVT: SCDs; hold chemical ppx in light of thrombocytopenia Dispo: continue to monitor in m/s Visit type - Emergency Visit Emergency Visit: No - New Patient This patient is new to me today: Yes Date on this admission: 08/12/20 - Critical Care Critical Care patient: No - Discharge Referral [facility] No ATTENDING PHYSICIAN STATEMENT I saw and evaluated the patient. I reviewed the resident's note and discussed the case with the resident. I agree with the resident's findings and plan as documented. SUBJECTIVE: OBJECTIVE: ASSESSMENT AND PLAN:
--- NOTE | 2020-08-12 16:34 | PN ---
Teaching Attending Note Name of Resident: Marv Krishnan ATTENDING PHYSICIAN STATEMENT I saw and evaluated the patient. I reviewed the resident's note and discussed the case with the resident. I agree with the resident's findings and plan as documented. SUBJECTIVE: Feels well, no complaints. No fever/chills/nausea/vomiting/melena/hematochezia. Agitated overnight requiring 1:1 OBJECTIVE: Afebrile, hemodynamically Stable. Tremor of outstretched arms/tongue. AAO x 3. Denies headache/visual disturbance/limb numbness/weakness. Last Vital Signs Temp Pulse Resp BP Pulse Ox 98.1 F 89 20 137/70 95 08/12/20 09:00 08/12/20 09:00 08/12/20 09:00 08/12/20 09:08/12/20 09:00 Heart - S1, S2, RRR Lungs - clear to auscultation Abdomen - Distended, Ascites +. Minimally tender. Bowel Sounds normal. Extremities - trace edema, no calf tenderness. MS - Some bruising on extremities and small area on abdomen. Neuro - AAO x 3. Tone/Power normal. Laboratory Results - last 24 hr 08/11/20 08/11/20 08/11/20 18:35 18:35 22:20 WBC 2.5 L RBC 2.51 L Hgb 7.0 L Hct 21.7 L MCV 86.5 MCH 27.9 MCHC 32.3 RDW 19.5 H Plt Count 18 L* MPV 9.4 Absolute Neuts (auto) 1.6 Neutrophils % 64.8 Lymphocytes % 19.4 Monocytes % 13.8 H Eosinophils % 1.7 D Basophils % 0.3 Nucleated RBC % 0 Platelet Estimate PT with INR INR PTT (Actin FS) Fibrinogen Sodium Potassium Chloride Carbon Dioxide Anion Gap BUN Creatinine Est GFR (CKD-EPI)AfAm Est GFR (CKD-EPI)NonAf Random Glucose Calcium Phosphorus Magnesium Total Bilirubin AST ALT Alkaline Phosphatase LD Total Total Protein Albumin Urine Color Yellow Urine Appearance Clear Urine pH 7.5 Ur Specific G[place] 1.010 Urine Protein 2+ H Urine Glucose (UA) Negative Urine Ketones Negative Urine Blood 3+ H Urine Nitrite Negative Urine Bilirubin Negative Urine Urobilinogen 0.2 Ur Leukocyte Esterase Negative Urine WBC (Auto) 3 Urine RBC (Auto) 116 Urine Casts (Auto) 1 U Epithel Cells (Auto) 1 Urine Bacteria (Auto) 35 Urine Yeast (Auto) None seen Opiates Screen Negative Methadone Screen Negative Barbiturate Screen Negative Phencyclidine Screen Negative Ur Amphetamines Screen Negative MDMA (Ecstasy) Screen Negative Benzodiazepines Screen Negative Cocaine Screen Negative U Marijuana (THC) Screen Negative Blood Type Antibody Screen Crossmatch 08/12/20 08/12/20 08/12/20 07:45 07:45 07:45 WBC RBC Hgb Hct MCV MCH MCHC RDW Plt Count MPV Absolute Neuts (auto) Neutrophils % Lymphocytes % Monocytes % Eosinophils % Basophils % Nucleated RBC % Platelet Estimate PT with INR 21.60 H INR 1.82 H PTT (Actin FS) 30.3 Fibrinogen 140.0 L Sodium 138 Potassium 3.5 Chloride 106 Carbon Dioxide 26 Anion Gap 7 L BUN 8.6 Creatinine 0.4 L Est GFR (CKD-EPI)AfAm 152.81 Est GFR (CKD-EPI)NonAf 131.85 Random Glucose 91 Calcium 7.9 L Phosphorus 2.7 Magnesium 1.4 L Total Bilirubin 3.5 H AST 97 H ALT 23 Alkaline Phosphatase 167 H LD Total 337 H Total Protein 6.5 Albumin 2.3 L Urine Color Urine Appearance Urine pH Ur Specific [place] Urine Protein Urine Glucose (UA) Urine Ketones Urine Blood Urine Nitrite Urine Bilirubin Urine Urobilinogen Ur Leukocyte Esterase Urine WBC (Auto) Urine RBC (Auto) Urine Casts (Auto) U Epithel Cells (Auto) Urine Bacteria (Auto) Urine Yeast (Auto) Opiates Screen Methadone Screen Barbiturate Screen Phencyclidine Screen Ur Amphetamines Screen MDMA (Ecstasy) Screen Benzodiazepines Screen Cocaine Screen U Marijuana (THC) Screen Blood Type Antibody Screen Crossmatch 08/12/20 08/12/20 07:45 07:45 WBC 2.2 L RBC 2.40 L Hgb 6.9 L* Hct 21.0 L MCV 87.2 MCH 28.5 MCHC 32.7 RDW 19.4 H Plt Count 16 L* MPV 9.6 Absolute Neuts (auto) 1.3 L Neutrophils % 60.5 Lymphocytes % 21.6 Monocytes % 15.5 H Eosinophils % 2.0 Basophils % 0.4 Nucleated RBC % 0 Platelet Estimate Decreased PT with INR INR PTT (Actin FS) Fibrinogen Sodium Potassium Chloride Carbon Dioxide Anion Gap BUN Creatinine Est GFR (CKD-EPI)AfAm Est GFR (CKD-EPI)NonAf Random Glucose Calcium Phosphorus Magnesium Total Bilirubin AST ALT Alkaline Phosphatase LD Total Total Protein Albumin Urine Color Urine Appearance Urine pH Ur Specific [place] Urine Protein Urine Glucose (UA) Urine Ketones Urine Blood Urine Nitrite Urine Bilirubin Urine Urobilinogen Ur Leukocyte Esterase Urine WBC (Auto) Urine RBC (Auto) Urine Casts (Auto) U Epithel Cells (Auto) Urine Bacteria (Auto) Urine Yeast (Auto) Opiates Screen Methadone Screen Barbiturate Screen Phencyclidine Screen Ur Amphetamines Screen MDMA (Ecstasy) Screen Benzodiazepines Screen Cocaine Screen U Marijuana (THC) Screen Blood Type O POSITIVE Antibody Screen Negative Crossmatch See Detail Current Medications Generic Name Dose Route Start Last Admin Trade Name Freq PRN Reason Stop Dose Admin Folic Acid 1 mg 08/11/20 10:00 08/12/20 09:45 Folic Acid - PO 1 mg DAILY BEKA Administration Lactulose 20 gm 08/11/20 14:00 08/12/20 13:12 Cephulac (Oral Use) PO 20 gm TID BEKA Administration Lorazepam 1 mg 08/12/20 05:00 08/12/20 10:42 Ativan - PO 08/12/20 23:01 1 mg 0500,1100,1700,2300 BEKA Administration Lorazepam 1 mg 08/11/20 02:17 08/12/20 13:52 Ativan - PO 08/13/20 00:00 1 mg Q4H PRN Administration Symptoms of Withdrawal Lorazepam 0.5 mg 08/13/20 05:00 Ativan - PO 08/13/20 23:01 Q6H BEKA Lorazepam 0.5 mg 08/13/20 00:00 Ativan - PO 08/14/20 00:00 Q4H PRN Symptoms of Withdrawal Lorazepam 0.5 mg 08/14/20 05:00 Ativan - PO 08/14/20 05:01 ONCE ONE Multivitamins/Minerals/Vitamin C 1 tab 08/11/20 10:00 08/12/20 09:45 Tab-A-Vit - PO 1 tab DAILY BEKA Administration Nadolol 20 mg 08/11/20 10:00 08/12/20 09:45 Corgard - PO 20 mg DAILY BEKA Administration Pneumococcal Polyvalent Vaccine 0.5 ml 08/11/20 15:45 Pneumovax - IM 08/11/20 15:46 .ONCE ONE Thiamine HCl 100 mg 08/11/20 10:00 08/12/20 09:45 Vitamin B1 - PO 100 mg DAILY BEKA Administration Home Medications Medication Instructions Recorded Unobtainable 08/09/20 ASSESSMENT AND PLAN: 59 year old male with history of Cirrhosis, Chronic Anemia, and HTN, sent from [facility] (where he was undergoing alcohol detox) for bruising, found to have Platelets of 9 and sent to the ED, from where he left AMA. He subsequently sustained a fall at home and returned to the ED - denies preceding CP/palpitations. Currently denies headache/visual disturbance/limb numbness/weakness. Denies melena/hematochezia/hematemesis/hemoptysis. 1. Pancytopenia (Leukopenia/Anemia/thrombocytopenia) - likely secondary to marrow suppression sec to Liver Cirrhosis CT A/P - Cirrhosis/Ascites/Varices/Splenomegaly WBC 2.4, H/H 6.9/21.7, Platelets 16 (s/p 4 units PRBCs 08/10) - will transfuse 1 unit PRBCs. Iron Deficiency Anemia - No active bleeding noted. No fever/GREGG, unlikely hemolysis. Peripheral smear requested, LDH mildly elevated Hematology following, unlikely superimposed ITP as per Hematology. No signs of infection - GI recommend Paracentesis once platelet levels allow - no empiric Abx therapy. Will need Iron supplementation on discharge. Records requested from [facility]. 2. Acute Alcohol Withdrawal Ativan as per [facility] protocol Received Banana Bag continue MVI, Thiamine, Folic Acid. 3. Ascites and Varices secondary to Portal Hypertension due to Liver Cirrhosis Evaluated by GI - recommend Paracentesis once platelet level allows, started on Nadolol. Records requested from [facility] for information regarding recent EGD/GI work up and list of home meds. 4. Elevated Ammonia on admission secondary to Cirrhosis - no evidence of acute hepatic encephalopathy. Will give lactulose to prevent encephalopathy. Repeat Ammonia level normal. 5. HTN - Need to reconcile meds. Recommended Nadolol by GI in the interim. 6. Fall with HI at home - CT Head/CT C-spine reportedly without acute changes. Repeat CT Head unchanged. 7. Hypokalemia/Hypomagnesemia/Hypophosphatemia - repleted. DVT Px - Heparin/Lovenox held due to severe Thrombocytopenia
[2020-08-12] MEDS ORDERED: PNEUMOCOCCAL 23 VACCINE 0.5 ML VIAL IM ONE (17:30)
[2020-08-12] MEDS ORDERED: KETOTIFEN FUMARATE OP SCH (17:45)
[2020-08-13] MEDS ORDERED: LORazepam 0.5 MG TABLET PO PRN
[2020-08-13] MEDS: LACTULOSE 20 GM/30 ML UDC (FOR ORAL USE ONLY) PO SCH ×4 (05:56→21:48)
[2020-08-13] MEDS: LORazepam 0.5 MG TABLET PO SCH ×4 (05:56→23:16)
[2020-08-13 08:17] LABS: BASO % 0.4 % (0-2.0); EOS % 2.1 % (0-4.5); HEMATOCRIT 24.8 % (35.4-49); HEMOGLOBIN 8.1 GM/dL (11.7-16.9); LYMPH % 17.5 % (8-40); MCH 28.1 pg (25.7-33.7); MCHC 32.6 g/dl (32.0-35.9); MEAN CELL VOLUME 86.3 fl (80-96); MEAN PLT VOLUME 9.2 fl (7.5-11.1); MONO % 15.1 % (3.8-10.2); NEUT % 64.9 % (42.8-82.8); RBC 2.88 M/mm3 (4.00-5.60); RDW 20.1 % (11.9-15.9); WHITE BLOOD COUNT 2.9 K/mm3 (4.0-10.0)
[2020-08-13 08:36] LABS: BLOOD UREA NITROGEN 9.6 mg/dL (7-18); CALCIUM 7.8 mg/dL (8.5-10.1); CREATININE 0.4 mg/dL (0.55-1.3); MAGNESIUM 1.7 mg/dL (1.8-2.4); PHOSPHOROUS 3.8 mg/dL (2.5-4.9); POTASSIUM 3.1 mmol/L (3.5-5.1)
[2020-08-13] MEDS ORDERED: POTASSIUM CHLORIDE TABS 20 MEQ TABLET.ER (FP) PO ONE (09:15)
[2020-08-13] MEDS: FOLIC ACID 1 MG TABLET (FP) PO SCH (09:17)
[2020-08-13] MEDS: MULTIVITAMINS (DAILY MVI) TABLET (FP) PO SCH (09:17)
[2020-08-13] MEDS: THIAMINE HCL 100 MG TABLET (FP) PO SCH (09:17)
[2020-08-13] MEDS: NADOLOL 20 MG TABLET (FP) PO SCH (09:17)
[2020-08-13 09:36] LABS: PLATELET COUNT 19 K/MM3 (134-434)
[2020-08-13] MEDS: KCL 10 MEQ IVPB 10 MEQ/100 ML INFUS.BAG IVPB SCH ×3 (10:13→13:13)
--- NOTE | 2020-08-13 11:40 | PN ---
Physical Exam: SUBJECTIVE: Patient seen and examined at bedside. No acute events reported overnight. OBJECTIVE: Vital Signs Period Temp Pulse Resp BP Sys/Schumacher Pulse Ox Last 24 Hr 97 F-98.8 F 76-95 20-20 116-146/66-86 96-99 ENERAL: AAOx2, patient is more confused today HEENT: NCAT, PERRLA, EOMI, sclera anicteric, conjunctiva clear, oropharynx clear w/o exudates. MMM. NECK: Normal ROM, supple, no lymphadenopathy, JVD, or masses LUNGS: CTABL no wheezes/ rhonchi/ rales. No distress, speaks in full sentences. No increased work of breathing. HEART: RRR, normal S1 S2, no M/R/G, peripheral pulses 2+ and equal b/l ABDOMEN: protoudant and distended abdomen with ascities. +ecchymosis, +fluid wave. MSK: ROM WNL EXTREMITIES: Normal inspection. No peripheral edema. No clubbing or cyanosis. NEUROLOGICAL: CN II-XII intact. Normal speech, normal gait, no focal sensorimotor deficits. SKIN: Warm, Dry, normal turgor, no rashes or lesions noted Laboratory Results - last 24 hr CBC, BMP 08/13/20 06:55 08/13/20 06:55 08/13/20 08/13/20 06:55 06:55 WBC 2.9 L RBC 2.88 L Hgb 8.1 L Hct 24.8 L D MCV 86.3 MCH 28.1 MCHC 32.6 RDW 20.1 H Plt Count 19 L* MPV 9.2 Absolute Neuts (auto) 1.9 Neutrophils % 64.9 Lymphocytes % 17.5 Monocytes % 15.1 H Eosinophils % 2.1 Basophils % 0.4 Nucleated RBC % 0 Sodium 139 Potassium 3.1 L Chloride 107 Carbon Dioxide 23 Anion Gap 8 BUN 9.6 Creatinine 0.4 L Est GFR (CKD-EPI)AfAm 152.81 Est GFR (CKD-EPI)NonAf 131.85 Random Glucose 85 Calcium 7.8 L Phosphorus 3.8 Magnesium 1.7 L Active Medications Generic Name Dose Route Start Last Admin Trade Name Freq PRN Reason Stop Dose Admin Folic Acid 1 mg 08/11/20 10:00 08/13/20 09:17 Folic Acid - PO 1 mg DAILY BEKA Administration Potassium Chloride 10 meq in 100 mls @ 100 mls/hr 08/13/20 09:45 08/13/20 11:39 Potassium Chloride 10 Meq Premix Ivpb - IVPB 08/13/20 12:44 100 mls/hr Q60M BEKA Administration Lactulose 20 gm 08/11/20 14:00 08/13/20 05:56 Cephulac (Oral Use) PO 20 gm TID BEKA Administration Lorazepam 0.5 mg 08/13/20 05:00 08/13/20 10:46 Ativan - PO 08/13/20 23:01 0.5 mg Q6H BEKA Administration Lorazepam 0.5 mg 08/13/20 00:00 Ativan - PO 08/14/20 00:00 Q4H PRN Symptoms of Withdrawal Lorazepam 0.5 mg 08/14/20 05:00 Ativan - PO 08/14/20 05:01 ONCE ONE Multivitamins/Minerals/Vitamin C 1 tab 08/11/20 10:00 08/13/20 09:17 Tab-A-Vit - PO 1 tab DAILY BEKA Administration Nadolol 20 mg 08/11/20 10:00 08/13/20 09:17 Corgard - PO 20 mg DAILY BEKA Administration Non-Formulary Medication 10 ml 08/12/20 17:45 Ketotifen Fumarate [[place]] OP PRN BEKA Non-Formulary Medication 10 mg 08/12/20 17:45 Hydroxyzine Hcl [Hydroxyzine Hcl] PO DAILY BEKA Thiamine HCl 100 mg 08/11/20 10:00 08/13/20 09:17 Vitamin B1 - PO 100 mg DAILY BEKA Administration ASSESSMENT/PLAN: Patient is a 59 year old male with history of Cirrhosis, Chronic Anemia, and HTN, sent from [facility] for bruising of LE and abdomen. Admitted for pancytopenia, alcoholic withdrawal, and liver cirrhosis. #Pancytopenia -leukopenia, anemia, and thrombocytopenia likely 2/2 liver cirrhosis and splenomegaly -Platelets 9 on admission -s/p 4u platelets; today platelet level is 19 -Hg level today was 8.1 s/p 1 U transfusion yesterday -Heme-Onc on board: likely Acute on chronic Thrombocytopenia from alcohol intoxication and underlying cirrhosis -B12 and folate elevated, iron wnl -records requested from [facility] #Alcohol withdrawal -c/w ativan protocol -c/w MV, folate and thiamine #Liver Cirrhosis -CTAP: findings consistent with cirrhosis including moderate amount of ascites, splenomegaly, varices and recanalized umbilical vein. -will follow up records from [facility] on previous work-ups done -c/w Lactulose 20 mg TID -Nadolol 20mg daily -recommend diagnostic paracentesis once platelet count is increased and stable -Fluid to be sent for cell count with differential, culture, cytology, total protein, albumin, with hepatic panel drawn the same day as the paracentesis performed. #Mechanical Fall -likely 2/2 unsteady gait from EtOH use -Physical therapy on board -repeat head CT negative for bleeding -fall risk precautions, neurochecks #HTN -On Nadolol 20mg daily for cirrhosis #FEN -Not on any standing fluids -K repleted today -sodium controlled diet #Prophylaxis -DVT: SCDs; hold chemical ppx in light of thrombocytopenia -GI: Protonix 40 MG BID Dispo: continue to monitor in m/s Visit type - Emergency Visit Emergency Visit: No - New Patient This patient is new to me today: No - Critical Care Critical Care patient: No - Discharge Referral Referred to [facility] Med [facility] No ATTENDING PHYSICIAN STATEMENT I saw and evaluated the patient. I reviewed the resident's note and discussed the case with the resident. I agree with the resident's findings and plan as documented. SUBJECTIVE: OBJECTIVE: ASSESSMENT AND PLAN:
[2020-08-13] MEDS ORDERED: MAGNESIUM SULF 50% (8.12 MEQ/2 ML-1 GM VIAL) IVPB ONE (15:47)
--- NOTE | 2020-08-13 15:51 | PN ---
Teaching Attending Note Name of Resident: Marv Krishnan ATTENDING PHYSICIAN STATEMENT I saw and evaluated the patient. I reviewed the resident's note and discussed the case with the resident. I agree with the resident's findings and plan as documented. SUBJECTIVE: pt seen and examined OBJECTIVE: Last Vital Signs Temp Pulse Resp BP Pulse Ox 98.1 F 72 20 117/76 97 08/13/20 15:00 08/13/20 15:00 08/13/20 15:00 08/13/20 15:00 08/13/20 15:00 Heart - S1, S2, RRR Lungs - clear to auscultation Abdomen - Distended, Ascites +. Minimally tender. Bowel Sounds normal. Extremities - trace edema, no calf tenderness. MS - bruising on extremities and small area on abdomen. Neuro - AAO x 3. Tone/Power normal. CBCD WBC 2.9 K/mm3 (4.0-10.0) L 08/13/20 06:55 RBC 2.88 M/mm3 (4.00-5.60) L 08/13/20 06:55 Hgb 8.1 GM/dL (11.7-16.9) L 08/13/20 06:55 Hct 24.8 % (35.4-49) L D 08/13/20 06:55 MCV 86.3 fl (80-96) 08/13/20 06:55 MCHC 32.6 g/dl (32.0-35.9) 08/13/20 06:55 RDW 20.1 % (11.9-15.9) H 08/13/20 06:55 Plt Count 19 K/MM3 (134-434) L* 08/13/20 06:55 MPV 9.2 fl (7.5-11.1) 08/13/20 06:55 CMP Sodium 139 mmol/L (136-145) 08/13/20 06:55 Potassium 3.1 mmol/L (3.5-5.1) L 08/13/20 06:55 Chloride 107 mmol/L (98-107) 08/13/20 06:55 Carbon Dioxide 23 mmol/L (21-32) 08/13/20 06:55 Anion Gap 8 MMOL/L (8-16) 08/13/20 06:55 BUN 9.6 mg/dL (7-18) 08/13/20 06:55 Creatinine 0.4 mg/dL (0.55-1.3) L 08/13/20 06:55 Random Glucose 85 mg/dL (74-106) 08/13/20 06:55 Calcium 7.8 mg/dL (8.5-10.1) L 08/13/20 06:55 Total Bilirubin 3.5 mg/dL (0.2-1) H 08/12/20 07:45 AST 97 U/L (15-37) H 08/12/20 07:45 ALT 23 U/L (13-61) 08/12/20 07:45 Alkaline Phosphatase 167 U/L (45-117) H 08/12/20 07:45 Total Protein 6.5 g/dl (6.4-8.2) 08/12/20 07:45 Albumin 2.3 g/dl (3.4-5.0) L 08/12/20 07:45 CARDIAC ENZYMES Troponin I 0.02 ng/ml (0.00-0.05) 08/11/20 10:38 Active Medications Folic Acid (Folic Acid -) 1 mg PO DAILY [facility] Last Admin: 08/13/20 09:17 Dose: 1 mg Documented by: Lactulose (Cephulac (Oral Use)) 20 gm PO TID [facility] Last Admin: 08/13/20 13:14 Dose: 20 gm Documented by: Lorazepam (Ativan -) 0.5 mg PO Q6H [facility] Stop: 08/13/20 23:01 Last Admin: 08/13/20 10:46 Dose: 0.5 mg Documented by: Lorazepam (Ativan -) 0.5 mg PO Q4H PRN PRN Reason: Symptoms of Withdrawal Stop: 08/14/20 00:00 Lorazepam (Ativan -) 0.5 mg PO ONCE ONE Stop: 08/14/20 05:01 Multivitamins/Minerals/Vitamin C (Tab-A-Vit -) 1 tab PO DAILY [facility] Last Admin: 08/13/20 09:17 Dose: 1 tab Documented by: Nadolol (Corgard -) 20 mg PO DAILY [facility] Last Admin: 08/13/20 09:17 Dose: 20 mg Documented by: Non-Formulary Medication (Ketotifen Fumarate [Alaway]) 10 ml OP PRN [facility]KA Non-Formulary Medication (Hydroxyzine Hcl [Hydroxyzine Hcl]) 10 mg PO DAILY [facility] Thiamine HCl (Vitamin B1 -) 100 mg PO DAILY [facility] Last Admin: 08/13/20 09:17 Dose: 100 mg Documented by: ASSESSMENT AND PLAN: 59 year old man with Mhx of Cirrhosis, Chronic Anemia, and HTN, sent from [facility] (where he was undergoing alcohol detox) for bruising, found to have Platelets of 9 and sent to the ED, from where he left AMA. He subsequently sustained a fall at home and returned to the ED # Pancytopenia likely secondary to marrow suppression due to EtOH CT A/P - Cirrhosis/Ascites/Varices/Splenomegaly plt improved Hg improved with transfusion monitor for occult bleeding (thighs, abdomen), especially if Hg trend down will obtain Reticount, LDH, haptoglobin (if Hg trends down) Hematology following No signs of SBP awaiting for external records # EtOH Withdrawal Ativan as per [facility] protocol Received Banana Bag continue MVI, Thiamine, Folic Acid. # decompensated cirrhosis Ascites and Varices secondary to Portal Hypertension due to Liver Cirrhosis Evaluated by GI - recommend Paracentesis once platelet level allows, started on Nadolol. Records requested from [facility] for information regarding recent EGD/GI work up and list of home meds. HTN DVT Px - Heparin/Lovenox held due to severe Thrombocytopenia
[2020-08-13] MEDS ORDERED: ACETAMINOPHEN 1000 MG/100 ML VIAL (NON FORMULARY) IVPB ONE (21:56)
[2020-08-14] MEDS ORDERED: LORazepam 0.5 MG TABLET PO ONE (05:00)
[2020-08-14] MEDS: LACTULOSE 20 GM/30 ML UDC (FOR ORAL USE ONLY) PO SCH ×3 (06:12→21:35)
--- NOTE | 2020-08-14 07:10 | PN.GI ---
GI Progress Note Subjective: PATIENT DENIES ANY COMPLAINTS AT THIS TIME STATES HE IS FEELING WELL NO ABD PAIN / N/V/D/C / GI BLEED - Objective Vital Signs: Vital Signs Temperature 98.9 F 08/14/20 05:00 Pulse Rate 71 08/14/20 05:00 Respiratory Rate 08/14/20 05:00 Blood Pressure 127/79 08/14/20 05:00 O2 Sat by Pulse Oximetry (%) 97 08/14/20 05:00 Constitutional: Well Nourished Eyes: Yes: WNL Cardiovascular: Yes: WNL Respiratory: Yes: WNL, Regular Gastrointestinal Inspection: Yes: WNL ...Auscultate: Yes: Normoactive Bowel Sounds Extremities: Yes: WNL Edema: No Labs: CBC, BMP 08/13/20 06:55 08/13/20 06:55 INR, PTT INR 1.82 (0.83-1.09) H 08/12/20 07:45 Fibrinogen 140.0 mg/dL (238-498) L 08/12/20 07:45 Problem List - Problems (1) Cirrhosis Assessment/Plan: WITHDRAWAL PROTOCOL C/W NADALOL PPI DIET TOLERATED - LOW SODIUM OBTAIN REPORTS FROM OUTSIDE FACILITY Code(s): K74.60 - UNSPECIFIED CIRRHOSIS OF LIVER Qualifiers: Hepatic cirrhosis type: alcoholic cirrhosis Ascites presence: with ascites Qualified Code(s): K70.31 - Alcoholic cirrhosis of liver with ascites (2) Thrombocytopenia Code(s): D69.6 - THROMBOCYTOPENIA, UNSPECIFIED (3) Alcohol withdrawal Code(s): F10.239 - ALCOHOL DEPENDENCE WITH WITHDRAWAL, UNSPECIFIED Qualifiers: Complication of substance-induced condition: uncomplicated Qualified Cod e(s): F10.230 - Alcohol dependence with withdrawal, uncomplicated (4) Normocytic anemia Code(s): D64.9 - ANEMIA, UNSPECIFIED
[2020-08-14 07:58] LABS: BASO % 0.4 % (0-2.0); EOS % 3.2 % (0-4.5); HEMATOCRIT 25.9 % (35.4-49); HEMOGLOBIN 8.4 GM/dL (11.7-16.9); LYMPH % 18.6 % (8-40); MCH 27.9 pg (25.7-33.7); MCHC 32.4 g/dl (32.0-35.9); MEAN CELL VOLUME 86.1 fl (80-96); MEAN PLT VOLUME 10.1 fl (7.5-11.1); MONO % 23.1 % (3.8-10.2); NEUT % 54.7 % (42.8-82.8); RBC 3.01 M/mm3 (4.00-5.60); RDW 21.2 % (11.9-15.9); RETICULOCYTES 4.79 % (0.5-1.5); WHITE BLOOD COUNT 2.6 K/mm3 (4.0-10.0)
[2020-08-14 08:12] LABS: PLATELET COUNT 23 K/MM3 (134-434)
[2020-08-14 08:37] LABS: ALBUMIN 2.3 g/dl (3.4-5.0); BILIRUBIN,TOTAL 2.9 mg/dL (0.2-1); CREATININE 0.6 mg/dL (0.55-1.3); MAGNESIUM 1.6 mg/dL (1.8-2.4); PHOSPHOROUS 3.2 mg/dL (2.5-4.9); POTASSIUM 3.5 mmol/L (3.5-5.1); TOT PROT 6.7 g/dl (6.4-8.2)
[2020-08-14] MEDS: MULTIVITAMINS (DAILY MVI) TABLET (FP) PO SCH (09:41)
[2020-08-14] MEDS: NADOLOL 20 MG TABLET (FP) PO SCH (09:41)
[2020-08-14] MEDS: FOLIC ACID 1 MG TABLET (FP) PO SCH (09:41)
[2020-08-14] MEDS: THIAMINE HCL 100 MG TABLET (FP) PO SCH (09:43)
[2020-08-14 10:53] LABS: ANISOCYTOSIS 1+; MACROCYTOSIS 0; PLATELET ESTIMATE DECREASED
--- NOTE | 2020-08-14 12:07 | PN ---
Physical Exam: SUBJECTIVE: Patient seen and examined at bedside. No acute events overnight. OBJECTIVE: Vital Signs Period Temp Pulse Resp BP Sys/Schumacher Pulse Ox Last 24 Hr 98.1 F-100.4 F 71-88 20-20 117-136/76-79 96-97 GENERAL: AAOx3, patient is less confused today; more responsive HEENT: NCAT, PERRLA, EOMI, sclera anicteric, conjunctiva clear, oropharynx clear w/o exudates. MMM. NECK: Normal ROM, supple, no lymphadenopathy, JVD, or masses LUNGS: CTABL no wheezes/ rhonchi/ rales. No distress, speaks in full sentences. No increased work of breathing. HEART: RRR, normal S1 S2, no M/R/G, peripheral pulses 2+ and equal b/l ABDOMEN: protoudant and distended abdomen with ascities. +ecchymosis, +fluid wave. MSK: ROM WNL EXTREMITIES: Normal inspection. No peripheral edema. No clubbing or cyanosis. NEUROLOGICAL: CN II-XII intact. Normal speech, normal gait, no focal sensorimotor deficits. SKIN: Warm, Dry, normal turgor, no rashes or lesions noted Laboratory Results - last 24 hr CBC, BMP 08/14/20 07:27 08/14/20 07:27 08/14/20 08/14/20 07:27 07:27 WBC 2.6 L RBC 3.01 L Hgb 8.4 L Hct 25.9 L MCV 86.1 MCH 27.9 MCHC 32.4 RDW 21.2 H Plt Count 23 L* D MPV 10.1 Absolute Neuts (auto) 1.4 L Neutrophils % 54.7 Neutrophils % (Manual) 63.0 Band Neutrophils % 2.0 Lymphocytes % 18.6 Lymphocytes % (Manual) 17.0 Monocytes % 23.1 H Monocytes % (Manual) 16 H Eosinophils % 3.2 Eosinophils % (Manual) 2.0 D Basophils % 0.4 Basophils % (Manual) 0.0 Myelocytes % (Man) 0 Promyelocytes % (Man) 0 Blast Cells % (Manual) 0 Nucleated RBC % 0 Metamyelocytes 0 Hypochromia 0 Platelet Estimate Decreased Polychromasia 1+ Poikilocytosis 1+ Anisocytosis 1+ Microcytosis 1+ Macrocytosis 0 Spherocytes 1+ Retic Count 4.79 H D Sodium 138 Potassium 3.5 Chloride 108 H Carbon Dioxide 24 Anion Gap 6 L BUN 11.0 Creatinine 0.6 Est GFR (CKD-EPI)AfAm 129.36 Est GFR (CKD-EPI)NonAf 111.61 Random Glucose 124 H Calcium 8.0 L Phosphorus 3.2 Magnesium 1.6 L Total Bilirubin 2.9 H AST 83 H ALT 23 Alkaline Phosphatase 173 H Total Protein 6.7 Albumin 2.3 L Active Medications Generic Name Dose Route Start Last Admin Trade Name Zita PRN Reason Stop Dose Admin Folic Acid 1 mg 08/11/20 10:00 08/14/20 09:41 Folic Acid - PO 1 mg DAILY [facility] Administration Lactulose 20 gm 08/11/20 14:00 08/14/20 06:12 Cephulac (Oral Use) PO 20 gm TID [facility]KA Administration Multivitamins/Minerals/Vitamin C 1 tab 08/11/20 10:00 08/14/20 09:41 Tab-A-Vit - PO 1 tab DAILY [facility] Administration Nadolol 20 mg 08/11/20 10:00 08/14/20 09:41 Corgard - PO 20 mg DAILY [facility] Administration Non-Formulary Medication 10 mg 08/12/20 17:45 Hydroxyzine Hcl [Hydroxyzine Hcl] PO DAILY [facility] Thiamine HCl 100 mg 08/11/20 10:00 08/14/20 09:43 Vitamin B1 - PO 100 mg DAILY [facility] Administration ASSESSMENT/PLAN: Patient is a 59 year old male with history of Cirrhosis, Chronic Anemia, and HTN, sent from [facility] for bruising of LE and abdomen. Admitted for pancytopenia, alcoholic withdrawal, and liver cirrhosis. #Pancytopenia -leukopenia, anemia, and thrombocytopenia likely 2/2 liver cirrhosis and splenomegaly -Platelets 9 on admission -s/p 4u platelets; today platelet level is 23 -Hg level today was 8.4 -Heme-Onc on board: likely Acute on chronic Thrombocytopenia from alcohol intoxication and underlying cirrhosis -B12 and folate elevated, iron wnl -records requested from [facility] #Alcohol withdrawal -c/w ativan protocol -c/w MV, folate and thiamine #Liver Cirrhosis -CTAP: findings consistent with cirrhosis including moderate amount of ascites, splenomegaly, varices and recanalized umbilical vein. -will follow up records from [facility] on previous work-ups done -c/w Lactulose 20 mg TID -Nadolol 20mg daily -IR contacted for diagnostic paracentesis since platelet count improved -Fluid to be sent for cell count with differential, culture, cytology, total protein, albumin, with hepatic panel drawn the same day as the paracentesis performed. #Mechanical Fall -likely 2/2 unsteady gait from EtOH use -Physical therapy on board -repeat head CT negative for bleeding -fall risk precautions, neurochecks -Pt complaining of L shoulder and R knee pain today; s/p fall -x-ray of shoulder and knee ordered to r/o fracture #HTN -On Nadolol 20mg daily for cirrhosis #FEN -Not on any standing fluids -monitor lytes; replete PRN -sodium controlled diet #Prophylaxis -DVT: SCDs; hold chemical ppx in light of thrombocytopenia -GI: Protonix 40 MG BID Dispo: continue to monitor in m/s Visit type - Emergency Visit Emergency Visit: No - New Patient This patient is new to me today: No - Critical Care Critical Care patient: No - Discharge Referral Referred to [facility] Med P.C[facility] No ATTENDING PHYSICIAN STATEMENT I saw and evaluated the patient. I reviewed the resident's note and discussed the case with the resident. I agree with the resident's findings and plan as documented. SUBJECTIVE: OBJECTIVE: ASSESSMENT AND PLAN:
--- NOTE | 2020-08-14 14:06 | PN ---
Teaching Attending Note Name of Resident: Marv Krishnan ATTENDING PHYSICIAN STATEMENT I saw and evaluated the patient. I reviewed the resident's note and discussed the case with the resident. I agree with the resident's findings and plan as documented. SUBJECTIVE: pt seen and examined at bedside OBJECTIVE: Last Vital Signs Temp Pulse Resp BP Pulse Ox 98.9 F 71 20 127/79 97 08/14/20 05:00 08/14/20 05:00 08/14/20 05:00 08/14/20 05:00 08/14/20 05:00 GEN: AAOx2, denies complains Lungs: clear to auscultation, no rales or wheezes Heart: S1, S2, RRR Abdomen: Distended, Ascites +. non tender. Bowel Sounds normal. MS: bruising on extremities and small area on abdomen.no clinical evidence of hematoma CBCD WBC 2.6 K/mm3 (4.0-10.0) L 08/14/20 07:27 RBC 3.01 M/mm3 (4.00-5.60) L 08/14/20 07:27 Hgb 8.4 GM/dL (11.7-16.9) L 08/14/20 07:27 Hct 25.9 % (35.4-49) L 08/14/20 07:27 MCV 86.1 fl (80-96) 08/14/20 07:27 MCHC 32.4 g/dl (32.0-35.9) 08/14/20 07:27 RDW 21.2 % (11.9-15.9) H 08/14/20 07:27 Plt Count 23 K/MM3 (134-434) L* D 08/14/20 07:27 MPV 10.1 fl (7.5-11.1) 08/14/20 07:27 CMP Sodium 138 mmol/L (136-145) 08/14/20 07:27 Potassium 3.5 mmol/L (3.5-5.1) 08/14/20 07:27 Chloride 108 mmol/L (98-107) H 08/14/20 07:27 Carbon Dioxide 24 mmol/L (21-32) 08/14/20 07:27 Anion Gap 6 MMOL/L (8-16) L 08/14/20 07:27 BUN 11.0 mg/dL (7-18) 08/14/20 07:27 Creatinine 0.6 mg/dL (0.55-1.3) 08/14/20 07:27 Random Glucose 124 mg/dL (74-106) H 08/14/20 07:27 Calcium 8.0 mg/dL (8.5-10.1) L 08/14/20 07:27 Total Bilirubin 2.9 mg/dL (0.2-1) H 08/14/20 07:27 AST 83 U/L (15-37) H 08/14/20 07:27 ALT 23 U/L (13-61) 08/14/20 07:27 Alkaline Phosphatase 173 U/L (45-117) H 08/14/20 07:27 Total Protein 6.7 g/dl (6.4-8.2) 08/14/20 07:27 Albumin 2.3 g/dl (3.4-5.0) L 08/14/20 07:27 CARDIAC ENZYMES Troponin I 0.02 ng/ml (0.00-0.05) 08/11/20 10:38 Active Medications Folic Acid (Folic Acid -) 1 mg PO DAILY [facility] Last Admin: 08/14/20 09:41 Dose: 1 mg Documented by: Lactulose (Cephulac (Oral Use)) 20 gm PO TID [facility] Last Admin: 08/14/20 06:12 Dose: 20 gm Documented by: Multivitamins/Minerals/Vitamin C (Tab-A-Vit -) 1 tab PO DAILY [facility] Last Admin: 08/14/20 09:41 Dose: 1 tab Documented by: Nadolol (Corgard -) 20 mg PO DAILY [facility] Last Admin: 08/14/20 09:41 Dose: 20 mg Documented by: Non-Formulary Medication (Hydroxyzine Hcl [Hydroxyzine Hcl]) 10 mg PO DAILY [facility] Thiamine HCl (Vitamin B1 -) 100 mg PO DAILY [facility] Last Admin: 08/14/20 09:43 Dose: 100 mg Documented by: ASSESSMENT AND PLAN: 59 year old man with Mhx of Cirrhosis, Chronic Anemia, and HTN, sent from [facility] (where he was undergoing alcohol detox) for bruising, found to have Platelets of 9 and sent to the ED, from where he left AMA. He subsequently sustained a fall at home and returned to the ED # Pancytopenia likely secondary to marrow suppression due to EtOH improving CT A/P - Cirrhosis/Ascites/Varices/Splenomegaly monitor for occult bleeding (thighs, abdomen), especially if Hg trend down bleeding precautions Hematology following No signs of SBP still waiting for external records # decompensated cirrhosis Ascites and Varices secondary to Portal Hypertension due to Liver Cirrhosis Evaluated by GI - recommend Paracentesis once platelet level allows, started on Nadolol. Records requested from [facility] for information regarding recent EGD/GI work up and list of home meds. EtOH withdrawal EtOH abuse HTN DVT Px - Heparin/Lovenox held due to severe Thrombocytopenia
[2020-08-14 20:11] LABS: INR 1.54 (0.83-1.09); PROTHROMBIN TIME (PATIENT) 18.3 SEC (9.7-13.0)
[2020-08-15] MEDS: LACTULOSE 20 GM/30 ML UDC (FOR ORAL USE ONLY) PO SCH ×3 (06:44→22:15)
[2020-08-15 07:03] LABS: BASO % 0.6 % (0-2.0); EOS % 2.8 % (0-4.5); HEMATOCRIT 26.5 % (35.4-49); HEMOGLOBIN 8.6 GM/dL (11.7-16.9); LYMPH % 19.4 % (8-40); MCHC 32.4 g/dl (32.0-35.9); MEAN CELL VOLUME 86.3 fl (80-96); MEAN PLT VOLUME 9.7 fl (7.5-11.1); MONO % 23.1 % (3.8-10.2); NEUT % 54.1 % (42.8-82.8); PLATELET COUNT 26 K/MM3 (134-434); RBC 3.07 M/mm3 (4.00-5.60); RDW 21.3 % (11.9-15.9); WHITE BLOOD COUNT 2.7 K/mm3 (4.0-10.0)
[2020-08-15 07:38] LABS: POTASSIUM 3.6 mmol/L (3.5-5.1)
[2020-08-15 07:50] LABS: ALBUMIN 2.4 g/dl (3.4-5.0); BILIRUBIN,TOTAL 2.8 mg/dL (0.2-1); BLOOD UREA NITROGEN 10.8 mg/dL (7-18); CALCIUM 8.2 mg/dL (8.5-10.1); CREATININE 0.5 mg/dL (0.55-1.3); MAGNESIUM 1.6 mg/dL (1.8-2.4); PHOSPHOROUS 3.1 mg/dL (2.5-4.9)
[2020-08-15 08:50] LABS: ANISOCYTOSIS 1+; MACROCYTOSIS 1+; PLATELET ESTIMATE DECREASED
--- NOTE | 2020-08-15 09:49 | PN ---
Physical Exam: SUBJECTIVE: Patient seen and examined at bedside. No acute events overnight. This morning, the patient is more responsive and engaging in conversation. OBJECTIVE: Vital Signs Period Temp Pulse Resp BP Sys/Schumacher Pulse Ox Last 24 Hr 98.5 F-100 F 73-78 16-20 134-151/75-91 96-100 GENERAL: AAOx3, patient is less confused today; more responsive and talkative. HEENT: NCAT, PERRLA, EOMI, sclera anicteric, conjunctiva clear, oropharynx clear w/o exudates. MMM. NECK: Normal ROM, supple, no lymphadenopathy, JVD, or masses LUNGS: CTABL no wheezes/ rhonchi/ rales. No distress, speaks in full sentences. No increased work of breathing. HEART: RRR, normal S1 S2, no M/R/G, peripheral pulses 2+ and equal b/l ABDOMEN: protoudant and distended abdomen with ascities. +ecchymosis, +fluid wave. MSK: ROM WNL EXTREMITIES: Normal inspection. No peripheral edema. No clubbing or cyanosis. NEUROLOGICAL: CN II-XII intact. Normal speech, normal gait, no focal sensorimotor deficits. SKIN: Warm, Dry, normal turgor, no rashes or lesions noted Laboratory Results - last 24 hr CBC, BMP 08/15/20 06:32 08/15/20 06:32 08/14/20 08/14/20 08/14/20 07:27 07:27 19:20 WBC RBC Hgb Hct MCV MCH MCHC RDW Plt Count MPV Absolute Neuts (auto) Neutrophils % Neutrophils % (Manual) 63.0 Band Neutrophils % 2.0 Lymphocytes % Lymphocytes % (Manual) 17.0 Monocytes % Monocytes % (Manual) 16 H Eosinophils % Eosinophils % (Manual) 2.0 D Basophils % Basophils % (Manual) 0.0 Myelocytes % (Man) 0 Promyelocytes % (Man) 0 Blast Cells % (Manual) 0 Nucleated RBC % 0 Metamyelocytes 0 Hypochromia 0 Platelet Estimate Decreased Polychromasia 1+ Poikilocytosis 1+ Anisocytosis 1+ Microcytosis 1+ Macrocytosis 0 Spherocytes 1+ Haptoglobin < 10 L PT with INR 18.30 H INR 1.54 H Sodium Potassium Chloride Carbon Dioxide Anion Gap BUN Creatinine Est GFR (CKD-EPI)AfAm Est GFR (CKD-EPI)NonAf Random Glucose Calcium Phosphorus Magnesium Total Bilirubin AST ALT Alkaline Phosphatase Total Protein Albumin 08/15/20 08/15/20 06:32 06:32 WBC 2.7 L RBC 3.07 L Hgb 8.6 L Hct 26.5 L MCV 86.3 MCH 28.0 MCHC 32.4 RDW 21.3 H Plt Count 26 L* MPV 9.7 Absolute Neuts (auto) 1.5 Neutrophils % 54.1 Neutrophils % (Manual) 57.0 Band Neutrophils % 0.0 Lymphocytes % 19.4 Lymphocytes % (Manual) 28.0 D Monocytes % 23.1 H Monocytes % (Manual) 11 H Eosinophils % 2.8 Eosinophils % (Manual) 3.0 Basophils % 0.6 Basophils % (Manual) 1.0 D Myelocytes % (Man) 0 Promyelocytes % (Man) 0 Blast Cells % (Manual) 0 Nucleated RBC % 0 Metamyelocytes 0 Hypochromia 0 Platelet Estimate Decreased Polychromasia 0 Poikilocytosis 0 Anisocytosis 1+ Microcytosis 1+ Macrocytosis 1+ Spherocytes Haptoglobin PT with INR INR Sodium 136 Potassium 3.6 Chloride 106 Carbon Dioxide 22 Anion Gap 8 BUN 10.8 Creatinine 0.5 L Est GFR (CKD-EPI)AfAm 139.42 Est GFR (CKD-EPI)NonAf 120.29 Random Glucose 116 H Calcium 8.2 L Phosphorus 3.1 Magnesium 1.6 L Total Bilirubin 2.8 H AST 78 H ALT 23 Alkaline Phosphatase 188 H Total Protein 7.0 Albumin 2.4 L Active Medications Generic Name Dose Route Start Last Admin Trade Name Zita PRN Reason Stop Dose Admin Folic Acid 1 mg 08/11/20 10:00 08/14/20 09:41 Folic Acid - PO 1 mg DAILY [facility] Administration Lactulose 20 gm 08/11/20 14:00 08/15/20 06:44 Cephulac (Oral Use) PO Not Given TID [facility] Multivitamins/Minerals/Vitamin C 1 tab 08/11/20 10:00 08/14/20 09:41 Tab-A-Vit - PO 1 tab DAILY [facility] Administration Nadolol 20 mg 08/11/20 10:00 08/14/20 09:41 Corgard - PO 20 mg DAILY [facility] Administration Non-Formulary Medication 10 mg 08/12/20 17:45 Hydroxyzine Hcl [Hydroxyzine Hcl] PO DAILY [facility] Thiamine HCl 100 mg 08/11/20 10:00 08/14/20 09:43 Vitamin B1 - PO 100 mg DAILY [facility] Administration ASSESSMENT/PLAN: Patient is a 59 year old male with history of Cirrhosis, Chronic Anemia, and HTN, sent from [facility] for bruising of LE and abdomen. Admitted for pancytopenia, alcoholic withdrawal, and liver cirrhosis. #Pancytopenia -leukopenia, anemia, and thrombocytopenia likely 2/2 liver cirrhosis and splenomegaly -Platelets 9 on admission -s/p 4u platelets; today platelet level is 26; trending up -Hg level today was 8.6 -Heme-Onc on board: likely Acute on chronic Thrombocytopenia from alcohol intoxication and underlying cirrhosis -B12 and folate elevated, iron wnl -[facility] #Alcohol withdrawal -resolved -completed ativan protocol -c/w MV, folate and thiamine #Liver Cirrhosis -CTAP: findings consistent with cirrhosis including moderate amount of ascites, splenomegaly, varices and recanalized umbilical vein. -will follow up records from [facility] on previous work-ups done -c/w Lactulose 20 mg TID -Nadolol 20mg daily -Paracentesis scheduled for today with Dr. Meadows- fluid to be sent for cultures, albumin, LDH, cell count; f/u results #Mechanical Fall -likely 2/2 unsteady gait from EtOH use -Physical therapy on board -repeat head CT negative for bleeding -fall risk precautions, neurochecks -Pt complaining of L shoulder and R knee pain today; s/p fall -x-ray of shoulder and knee ordered to r/o fracture- negative for any acute fractures #HTN -On Nadolol 20mg daily for cirrhosis #FEN -Not on any standing fluids -monitor lytes; replete PRN -sodium controlled diet #Prophylaxis -DVT: SCDs; hold chemical ppx in light of thrombocytopenia -GI: Protonix 40 MG BID Dispo: continue to monitor in m/s Visit type - Emergency Visit Emergency Visit: No - New Patient This patient is new to me today: No - Critical Care Critical Care patient: No - Discharge Referral Referred to [facility] Med P.C.: No ATTENDING PHYSICIAN STATEMENT I saw and evaluated the patient. I reviewed the resident's note and discussed the case with the resident. I agree with the resident's findings and plan as documented. SUBJECTIVE: OBJECTIVE: ASSESSMENT AND PLAN:
[2020-08-15] MEDS: NADOLOL 20 MG TABLET (FP) PO SCH (10:16)
[2020-08-15] MEDS: MULTIVITAMINS (DAILY MVI) TABLET (FP) PO SCH (10:16)
[2020-08-15] MEDS: FOLIC ACID 1 MG TABLET (FP) PO SCH (10:16)
[2020-08-15] MEDS: THIAMINE HCL 100 MG TABLET (FP) PO SCH (10:17)
--- NOTE | 2020-08-15 10:45 | PN ---
Teaching Attending Note Name of Resident: aMrv Krishnan ATTENDING PHYSICIAN STATEMENT I saw and evaluated the patient. I reviewed the resident's note and discussed the case with the resident. I agree with the resident's findings and plan as documented. SUBJECTIVE: pt seen and examined at bedside OBJECTIVE: Last Vital Signs Temp Pulse Resp BP Pulse Ox 99.3 F 78 20 141/75 96 08/15/20 06:00 08/15/20 06:00 08/15/20 06:00 08/15/20 06:00 08/15/20 06:00 GEN: AAOx2, denies complains Lungs: clear to auscultation, no rales or wheezes Heart: S1, S2, RRR Abdomen: Distended, Ascites +. non tender. Bowel Sounds normal. MS: bruising on extremities and small area on abdomen.no clinical evidence of he matoma CBCD WBC 2.7 K/mm3 (4.0-10.0) L 08/15/20 06:32 RBC 3.07 M/mm3 (4.00-5.60) L 08/15/20 06:32 Hgb 8.6 GM/dL (11.7-16.9) L 08/15/20 06:32 Hct 26.5 % (35.4-49) L 08/15/20 06:32 MCV 86.3 fl (80-96) 08/15/20 06:32 MCHC 32.4 g/dl (32.0-35.9) 08/15/20 06:32 RDW 21.3 % (11.9-15.9) H 08/15/20 06:32 Plt Count 26 K/MM3 (134-434) L* 08/15/20 06:32 MPV 9.7 fl (7.5-11.1) 08/15/20 06:32 CMP Sodium 136 mmol/L (136-145) 08/15/20 06:32 Potassium 3.6 mmol/L (3.5-5.1) 08/15/20 06:32 Chloride 106 mmol/L (98-107) 08/15/20 06:32 Carbon Dioxide 22 mmol/L (21-32) 08/15/20 06:32 Anion Gap 8 MMOL/L (8-16) 08/15/20 06:32 BUN 10.8 mg/dL (7-18) 08/15/20 06:32 Creatinine 0.5 mg/dL (0.55-1.3) L 08/15/20 06:32 Random Glucose 116 mg/dL (74-106) H 08/15/20 06:32 Calcium 8.2 mg/dL (8.5-10.1) L 08/15/20 06:32 Total Bilirubin 2.8 mg/dL (0.2-1) H 08/15/20 06:32 AST 78 U/L (15-37) H 08/15/20 06:32 ALT 23 U/L (13-61) 08/15/20 06:32 Alkaline Phosphatase 188 U/L (45-117) H 08/15/20 06:32 Total Protein 7.0 g/dl (6.4-8.2) 08/15/20 06:32 Albumin 2.4 g/dl (3.4-5.0) L 08/15/20 06:32 CARDIAC ENZYMES Troponin I 0.02 ng/ml (0.00-0.05) 08/11/20 10:38 Active Medications Folic Acid (Folic Acid -) 1 mg PO DAILY [facility] Last Admin: 08/15/20 10:16 Dose: 1 mg Documented by: Lactulose (Cephulac (Oral Use)) 20 gm PO TID [facility] Last Admin: 08/15/20 06:44 Dose: Not Given Documented by: Multivitamins/Minerals/Vitamin C (Tab-A-Vit -) 1 tab PO DAILY [facility] Last Admin: 08/15/20 10:16 Dose: 1 tab Documented by: Nadolol (Corgard -) 20 mg PO DAILY [facility] Last Admin: 08/15/20 10:16 Dose: 20 mg Documented by: Non-Formulary Medication (Hydroxyzine Hcl [Hydroxyzine Hcl]) 10 mg PO DAILY [facility] Thiamine HCl (Vitamin B1 -) 100 mg PO DAILY [facility] Last Admin: 08/15/20 10:17 Dose: 100 mg Documented by: ASSESSMENT AND PLAN: 59 year old man with Mhx of Cirrhosis, Chronic Anemia, and HTN, sent from [facility] (where he was undergoing alcohol detox) for bruising, found to have Platelets of 9 and sent to the ED, from where he left AMA. He subsequently sustained a fall at home and returned to the ED # Pancytopenia likely secondary to marrow suppression due to EtOH improving CT A/P - Cirrhosis/Ascites/Varices/Splenomegaly monitor for occult bleeding (thighs, abdomen), especially if Hg trend down bleeding precautions Hematology following No signs of SBP still waiting for external records # decompensated cirrhosis Ascites and Varices secondary to Portal Hypertension due to Liver Cirrhosis Evaluated by GI - recommend Paracentesis once platelet level allows, started on Nadolol. Records requested from [facility] for information regarding recent EGD/GI work up and list of home meds. EtOH withdrawal EtOH abuse HTN DVT Px - Heparin/Lovenox held due to severe Thrombocytopenia
[2020-08-16] MEDS: LACTULOSE 20 GM/30 ML UDC (FOR ORAL USE ONLY) PO SCH ×2 (06:43→16:15)
[2020-08-16 07:41] LABS: BASO % 0.8 % (0-2.0); EOS % 3.8 % (0-4.5); HEMATOCRIT 28.7 % (35.4-49); HEMOGLOBIN 9.3 GM/dL (11.7-16.9); LYMPH % 24.9 % (8-40); MCH 28.5 pg (25.7-33.7); MCHC 32.6 g/dl (32.0-35.9); MEAN CELL VOLUME 87.5 fl (80-96); MEAN PLT VOLUME 9.2 fl (7.5-11.1); NEUT % 47.5 % (42.8-82.8); PLATELET COUNT 35 K/MM3 (134-434); RBC 3.28 M/mm3 (4.00-5.60); RDW 21.5 % (11.9-15.9); WHITE BLOOD COUNT 2.5 K/mm3 (4.0-10.0)
[2020-08-16 08:02] LABS: BLOOD UREA NITROGEN 9.6 mg/dL (7-18); CALCIUM 8.2 mg/dL (8.5-10.1); CREATININE 0.6 mg/dL (0.55-1.3); MAGNESIUM 1.5 mg/dL (1.8-2.4); PHOSPHOROUS 3.5 mg/dL (2.5-4.9); POTASSIUM 3.8 mmol/L (3.5-5.1)
[2020-08-16 09:11] LABS: ANISOCYTOSIS 2+; MACROCYTOSIS 0; PLATELET ESTIMATE DECREASED
[2020-08-16] MEDS ORDERED: hydrOXYzine HCL 10 MG/5 ML LIQUID BULK BOTTLE PO SCH (10:00)
[2020-08-16] MEDS ORDERED: SPIRONOLACTONE 25 MG TABLET PO SCH (10:00)
[2020-08-16] MEDS ORDERED: PT OWN MED DRAWER 7, Y5N ONE (10:53)
[2020-08-16] MEDS: MULTIVITAMINS (DAILY MVI) TABLET (FP) PO SCH (10:55)
[2020-08-16] MEDS: FOLIC ACID 1 MG TABLET (FP) PO SCH (10:55)
[2020-08-16] MEDS: NADOLOL 20 MG TABLET (FP) PO SCH (10:55)
[2020-08-16] MEDS: THIAMINE HCL 100 MG TABLET (FP) PO SCH (10:56)
--- NOTE | 2020-08-16 11:54 | PN ---
Teaching Attending Note Name of Resident: Marv Krishnan ATTENDING PHYSICIAN STATEMENT I saw and evaluated the patient. I reviewed the resident's note and discussed the case with the resident. I agree with the resident's findings and plan as documented. SUBJECTIVE: pt seen and examined at bedside, complains from discomfort from abdominal distention and neck pain OBJECTIVE: Last Vital Signs Temp Pulse Resp BP Pulse Ox 99 F 77 20 132/67 97 08/16/20 06:00 08/16/20 06:00 08/16/20 06:00 08/16/20 06:00 08/16/20 06:00 GEN: AAOx2, denies complains Lungs: clear to auscultation, no rales or wheezes Heart: S1, S2, RRR Abdomen: Distended, Ascites +. non tender. Bowel Sounds normal. MS: bruising on extremities and small area on abdomen.no clinical evidence of hematoma CBCD WBC 2.5 K/mm3 (4.0-10.0) L 08/16/20 06:34 RBC 3.28 M/mm3 (4.00-5.60) L 08/16/20 06:34 Hgb 9.3 GM/dL (11.7-16.9) L 08/16/20 06:34 Hct 28.7 % (35.4-49) L 08/16/20 06:34 MCV 87.5 fl (80-96) 08/16/20 06:34 MCHC 32.6 g/dl (32.0-35.9) 08/16/20 06:34 RDW 21.5 % (11.9-15.9) H 08/16/20 06:34 Plt Count 35 K/MM3 (134-434) L* D 08/16/20 06:34 MPV 9.2 fl (7.5-11.1) 08/16/20 06:34 CMP Sodium 135 mmol/L (136-145) L 08/16/20 06:34 Potassium 3.8 mmol/L (3.5-5.1) 08/16/20 06:34 Chloride 105 mmol/L (98-107) 08/16/20 06:34 Carbon Dioxide 23 mmol/L (21-32) 08/16/20 06:34 Anion Gap 6 MMOL/L (8-16) L 08/16/20 06:34 BUN 9.6 mg/dL (7-18) 08/16/20 06:34 Creatinine 0.6 mg/dL (0.55-1.3) 08/16/20 06:34 Random Glucose 88 mg/dL (74-106) 08/16/20 06:34 Calcium 8.2 mg/dL (8.5-10.1) L 08/16/20 06:34 Total Bilirubin 2.8 mg/dL (0.2-1) H 08/15/20 06:32 AST 78 U/L (15-37) H 08/15/20 06:32 ALT 23 U/L (13-61) 08/15/20 06:32 Alkaline Phosphatase 188 U/L (45-117) H 08/15/20 06:32 Total Protein 7.0 g/dl (6.4-8.2) 08/15/20 06:32 Albumin 2.4 g/dl (3.4-5.0) L 08/15/20 06:32 CARDIAC ENZYMES Troponin I 0.02 ng/ml (0.00-0.05) 08/11/20 10:38 Active Medications Folic Acid (Folic Acid -) 1 mg PO DAILY [facility] Last Admin: 08/16/20 10:55 Dose: 1 mg Documented by: Hydroxyzine HCl (Atarax Liquid -) 10 mg PO DAILY [facility] Last Admin: 08/16/20 10:55 Dose: 10 mg Documented by: Lactulose (Cephulac (Oral Use)) 20 gm PO TID [facility] Last Admin: 08/16/20 06:43 Dose: 20 gm Documented by: Multivitamins/Minerals/Vitamin C (Tab-A-Vit -) 1 tab PO DAILY [facility] Last Admin: 08/16/20 10:55 Dose: 1 tab Documented by: Nadolol (Corgard -) 20 mg PO DAILY [facility] Last Admin: 08/16/20 10:55 Dose: 20 mg Documented by: Spironolactone (Aldactone -) 25 mg PO DAILY [facility] Last Admin: 08/16/20 10:55 Dose: 25 mg Documented by: Thiamine HCl (Vitamin B1 -) 100 mg PO DAILY [facility] Last Admin: 08/16/20 10:56 Dose: 100 mg Documented by: ASSESSMENT AND PLAN: 59 year old man with Mhx of Cirrhosis, Chronic Anemia, and HTN, sent from [facility] (where he was undergoing alcohol detox) for bruising, found to have Platelets of 9 and sent to the ED, from where he left AMA. He subsequently sustained a fall at home and returned to the ED # Pancytopenia likely secondary to marrow suppression due to EtOH improving CT A/P - Cirrhosis/Ascites/Varices/Splenomegaly monitor for occult bleeding (thighs, abdomen), especially if Hg trend down bleeding precautions Hematology following # decompensated cirrhosis Ascites, varices, Portal Hypertension Evaluated by GI - recommend Paracentesis once platelet level allows, on Nadolol added spironolactone, will titrate up as tolerated IR consulted for tap, will wait till Plt >50K. EtOH withdrawal (resolved) EtOH abuse HTN DVT Px - Heparin/Lovenox held due to severe Thrombocytopenia
--- NOTE | 2020-08-16 13:46 | PN ---
Physical Exam: SUBJECTIVE: Patient seen and examined at bedside. No acute events reported overnight. This morning the patient is c/o diffuse pain all over his body. OBJECTIVE: Vital Signs Period Temp Pulse Resp BP Sys/Schumacher Pulse Ox Last 24 Hr 98.5 F-99 F 56-77 18-20 132-138/57-85 95-100 GENERAL: AAOx3, patient is less confused today; more responsive and talkative. HEENT: NCAT, PERRLA, EOMI, sclera anicteric, conjunctiva clear, oropharynx clear w/o exudates. MMM. NECK: Normal ROM, supple, no lymphadenopathy, JVD, or masses LUNGS: CTABL no wheezes/ rhonchi/ rales. No distress, speaks in full sentences. No increased work of breathing. HEART: RRR, normal S1 S2, no M/R/G, peripheral pulses 2+ and equal b/l ABDOMEN: protoudant and distended abdomen with ascities. +ecchymosis, +fluid wave. MSK: ROM WNL EXTREMITIES: Normal inspection. No peripheral edema. No clubbing or cyanosis. NEUROLOGICAL: CN II-XII intact. Normal speech, normal gait, no focal sensorimotor deficits. SKIN: Warm, Dry, normal turgor, no rashes or lesions noted Laboratory Results - last 24 hr CBC, BMP 08/16/20 06:34 08/16/20 06:34 08/16/20 08/16/20 06:34 06:34 WBC 2.5 L RBC 3.28 L Hgb 9.3 L Hct 28.7 L MCV 87.5 MCH 28.5 MCHC 32.6 RDW 21.5 H Plt Count 35 L* D MPV 9.2 Absolute Neuts (auto) 1.2 L Neutrophils % 47.5 Neutrophils % (Manual) 55.7 Band Neutrophils % 0.0 Lymphocytes % 24.9 D Lymphocytes % (Manual) 25.8 Monocytes % 23.0 H Monocytes % (Manual) 10 Eosinophils % 3.8 Eosinophils % (Manual) 6.2 H D Basophils % 0.8 Basophils % (Manual) 0.0 Myelocytes % (Man) 0 Promyelocytes % (Man) 0 Blast Cells % (Manual) 0 Nucleated RBC % 1 H Metamyelocytes 0 Hypochromia 0 Platelet Estimate Decreased Polychromasia 1+ Poikilocytosis 0 Anisocytosis 2+ Microcytosis 2+ Macrocytosis 0 Sodium 135 L Potassium 3.8 Chloride 105 Carbon Dioxide 23 Anion Gap 6 L BUN 9.6 Creatinine 0.6 Est GFR (CKD-EPI)AfAm 129.36 Est GFR (CKD-EPI)NonAf 111.61 Random Glucose 88 Calcium 8.2 L Phosphorus 3.5 Magnesium 1.5 L Active Medications Generic Name Dose Route Start Last Admin Trade Name Freq PRN Reason Stop Dose Admin Folic Acid 1 mg 08/11/20 10:00 08/16/20 10:55 Folic Acid - PO 1 mg DAILY [facility] Administration Hydroxyzine HCl 10 mg 08/16/20 10:00 08/16/20 10:55 Atarax Liquid - PO 10 mg DAILY [facility] Administration Lactulose 20 gm 08/11/20 14:00 08/16/20 06:43 Cephulac (Oral Use) PO 20 gm TID [facility] Administration Multivitamins/Minerals/Vitamin C 1 tab 08/11/20 10:00 08/16/20 10:55 Tab-A-Vit - PO 1 tab DAILY [facility] Administration Nadolol 20 mg 08/11/20 10:00 08/16/20 10:55 Corgard - PO 20 mg DAILY [facility] Administration Spironolactone 25 mg 08/16/20 10:00 08/16/20 10:55 Aldactone - PO 25 mg DAILY [facility] Administration Thiamine HCl 100 mg 08/11/20 10:00 08/16/20 10:56 Vitamin B1 - PO 100 mg DAILY [facility] Administration ASSESSMENT/PLAN: Patient is a 59 year old male with history of Cirrhosis, Chronic Anemia, and HTN, sent from [facility] for bruising of LE and abdomen. Admitted for pancytopenia, alcoholic withdrawal, and liver cirrhosis. #Pancytopenia -leukopenia, anemia, and thrombocytopenia likely 2/2 liver cirrhosis and splen omegaly -Platelets 9 on admission -s/p 4u platelets; today platelet level is 35; trending up -Hg level today was 9.3 -Heme-Onc on board: likely Acute on chronic Thrombocytopenia from alcohol intoxi cation and underlying cirrhosis -B12 and folate elevated, iron wnl -records requested from [facility] #Alcohol withdrawal -resolved -completed ativan protocol -c/w MV, folate and thiamine #Liver Cirrhosis -CTAP: findings consistent with cirrhosis including moderate amount of ascites, splenomegaly, varices and recanalized umbilical vein. -will follow up records from [facility] on previous work-ups done -c/w Lactulose 20 mg TID -Nadolol 20mg daily -Paracentesis on hold due to low platelet count. IR won't do the procedure until platelets >50 #Mechanical Fall -likely 2/2 unsteady gait from EtOH use -Physical therapy on board -repeat head CT negative for bleeding -fall risk precautions, neurochecks -Pt complaining of L shoulder and R knee pain today; s/p fall -x-ray of shoulder and knee ordered to r/o fracture- negative for any acute fractures #HTN -On Nadolol 20mg daily for cirrhosis #FEN -Not on any standing fluids -monitor lytes; replete PRN -sodium controlled diet #Prophylaxis -DVT: SCDs; hold chemical ppx in light of thrombocytopenia -GI: Protonix 40 MG BID Dispo: continue to monitor in m/s Visit type - Emergency Visit Emergency Visit: No - New Patient This patient is new to me today: No - Critical Care Critical Care patient: No - Discharge Referral Referred to [facility] Med P.C.: No ATTENDING PHYSICIAN STATEMENT I saw and evaluated the patient. I reviewed the resident's note and discussed the case with the resident. I agree with the resident's findings and plan as documented. SUBJECTIVE: OBJECTIVE: ASSESSMENT AND PLAN:
--- NOTE | 2020-08-16 14:56 | DS ---
Physical Exam: SUBJECTIVE: Patient seen and examined at bedside. No acute events reported overnight. This morning the patient is c/o diffuse pain all over his body. OBJECTIVE: Vital Signs Period Temp Pulse Resp BP Sys/Schumacher Pulse Ox Last 24 Hr 98.5 F-99 F 56-77 18-20 132-134/67-85 95-97 PHYSICAL EXAM GENERAL: AAOx3, patient is less confused today; more responsive and talkative. HEENT: NCAT, PERRLA, EOMI, sclera anicteric, conjunctiva clear, oropharynx clear w/o exudates. MMM. NECK: Normal ROM, supple, no lymphadenopathy, JVD, or masses LUNGS: CTABL no wheezes/ rhonchi/ rales. No distress, speaks in full sentences. No increased work of breathing. HEART: RRR, normal S1 S2, no M/R/G, peripheral pulses 2+ and equal b/l ABDOMEN: protoudant and distended abdomen with ascities. +ecchymosis, +fluid wave. MSK: ROM WNL EXTREMITIES: Normal inspection. No peripheral edema. No clubbing or cyanosis. NEUROLOGICAL: CN II-XII intact. Normal speech, normal gait, no focal sensorimotor deficits. SKIN: Warm, Dry, normal turgor, no rashes or lesions noted LABS Laboratory Results - last 24 hr CBC, BMP 08/16/20 06:34 08/16/20 06:34 08/16/20 08/16/20 06:34 06:34 WBC 2.5 L RBC 3.28 L Hgb 9.3 L Hct 28.7 L MCV 87.5 MCH 28.5 MCHC 32.6 RDW 21.5 H Plt Count 35 L* D MPV 9.2 Absolute Neuts (auto) 1.2 L Neutrophils % 47.5 Neutrophils % (Manual) 55.7 Band Neutrophils % 0.0 Lymphocytes % 24.9 D Lymphocytes % (Manual) 25.8 Monocytes % 23.0 H Monocytes % (Manual) 10 Eosinophils % 3.8 Eosinophils % (Manual) 6.2 H D Basophils % 0.8 Basophils % (Manual) 0.0 Myelocytes % (Man) 0 Promyelocytes % (Man) 0 Blast Cells % (Manual) 0 Nucleated RBC % 1 H Metamyelocytes 0 Hypochromia 0 Platelet Estimate Decreased Polychromasia 1+ Poikilocytosis 0 Anisocytosis 2+ Microcytosis 2+ Macrocytosis 0 Sodium 135 L Potassium 3.8 Chloride 105 Carbon Dioxide 23 Anion Gap 6 L BUN 9.6 Creatinine 0.6 Est GFR (CKD-EPI)AfAm 129.36 Est GFR (CKD-EPI)NonAf 111.61 Random Glucose 88 Calcium 8.2 L Phosphorus 3.5 Magnesium 1.5 L HOSPITAL COURSE: Patient is a 59 year old male with history of Cirrhosis, Chronic Anemia, and HTN, sent from [facility] for bruising of LE and abdomen. Admitted for pancytopenia, alcoholic withdrawal, and liver cirrhosis. Patient received 4U of platelets on 08/11 and his platelets started trending upwards after the transfusion. Patient was also started on Librium protocol at admission due to a high CIWA score. Heme-Onc was on board and they said the thrombocytopenia was likely due to Acute on chronic Thrombocytopenia from alcohol intoxication and underlying cirrhosis. Patient also had a mechanical fall before admission and head CT was negative x2 for any bleeding and knee and shoulder x-ray was negative for any acute fractures. Patient was unable to get a paracentesis due to a low platelet count so he was recommended to follow up with his PCP about getting it outpatient if needed. Date of Admission:08/11/20 08/10/2092-[id number]: No acute chest pathology. 08/10/20-CT Abdomen/Pelvis-Markedly limited study with findings consistent with cirrhosis including a moderate amount of ascites, splenomegaly, varices and recanalized umbilical vein. No additional evidence of acute pathology within the abdomen or pelvis. Please see above discussion. 08/10/20-L Shoulder XR-Impression: No acute fracture appreciated. Possible old rotator cuff injury. Correlation recommended. 08/11/20-C Spine CT-No fracture is identified. 08/11/20-CT Head w/o contrast-No CT evidence of acute intracranial pathology. 08/12/20-US Abdomen-Limited exam due to persistent patient motion. Cholelithiasis identified on recently performed CT cannot be definitely visualized on the current exam presumably due to patient motion. No obvious sonographic evidence of acute cholecystitis. Additional evaluation utilizing a radionuclide HIDA scan may be considered. There is no definite biliary tract dilatation. Air accumulation identified within the common bile duct on recently performed CT is not appreciated on the current exam which may be due to interval resolution versus on a technical basis. Follow-up imaging as clinically indicated. Hepatic cirrhosis is noted. There is also probable hepatic steatosis. Ascites is seen which is probably moderate in volume. 08/14/20-L shoulder x-ray-Mild elevation of the humerus relative to the glenoid is again demonstrated and not significantly changed. No perceivable acute fracture is identified. Irregularity at the posterior aspect of the humeral head could reflect sequela of remote injury. Recommend follow-up CT or MRI for furthe r investigation. Acromioclavicular joint arthrosis. 08/14/20-Knee XR Right-Mild tricompartmental arthrosis, most pronounced at the medial compartment. Osseous structures are intact. Soft tissues are unremarkable. Date of Discharge: 08/16/20 Minutes to complete discharge: 36 Discharge Summary Problems reviewed: Yes Reason For Visit: HEPATIC CIRRHOSIS, THROMBOCYTOPENIA, FALL Current Active Problems Cirrhosis (Chronic) Thrombocytopenia (Chronic) Condition: Stable - Instructions Diet, Activity, Other Instructions: Your visit: You were admitted to the hospital for abdominal swelling and pain. You were found to have fluid in your abdomen and a very low platelet count. You were treated with medications with improvement of your symptoms. During your stay, we also treated you for alcohol withdrawal symptoms. We could not drain the fluid in your abdomen during your stay because your platelet count was too low. Medications changes: NEW MEDS: -We started you on a pill to help get rid of the extra fluid in your body. Please take 1 PILL OF Spironolactone 25 MG ONCE A DAY. -Continue to take all other home medications as prescribed. Follow up: -Please follow-up with your preconstruction manager, Dr. Awad, in 1 week. -Please follow up with your Animal Treatment Investigator, Dr. Mendes, in 1 week. -Visit with your Primary Care Provider, Dr. Earl in 1 week to get repeat labwork including platelet count and to plan draining of the fluid in your abdomen. Additional Instructions: -Please stop drinking alcohol! Drinking has many harmful effects on your body and can make your symptoms worse. -You are being discharged to your home. -Please return to the Emergency Department if you experience worsening pain, f aston, chills, shortness of breath, or chest pain, or if you experience any worsening, new or concerning symptoms. Referrals: Huma Mendes DO [Staff Physician] - 1 Week Katherine Earl MD [Primary Care Provider] - 2 Weeks Mouna Awad MD [Staff Physician] - 1 Week Disposition: I.P. ALCOHOL/SUBS ABUSE REHAB - Home Medications Comprehensive Discharge Medication List: Ambulatory Orders Hydroxyzine HCl 10 mg PO DAILY 08/12/20 Ketotifen Fumarate [Alaway] 10 ml OP PRN 08/12/20 Lactulose 10 gm PO TID 08/12/20 Nadolol [Corgard -] 20 mg PO DAILY 08/12/20 Pantoprazole Sodium 40 mg PO DAILY 08/12/20 Thiamine HCl [Vitamin B-1] 100 mg PO DAILY 08/12/20 Spironolactone [Aldactone -] 25 mg PO DAILY 30 Days #30 tablet 08/16/20 This patient is new to me today: No Emergency Visit: No Critical Care patient: No - Discharge Referral Referred to [facility] Med P.C.: No ATTENDING PHYSICIAN STATEMENT I saw and evaluated the patient. I reviewed the resident's note and discussed the case with the resident. I agree with the resident's findings and plan as documented. SUBJECTIVE: OBJECTIVE: ASSESSMENT AND PLAN:
[2020-08-16 15:40] VITALS: BP 139/92; PULSE 72; TEMP 98.6
== END 2020-08-16 18:23 | disposition other institution (70) | DRG 660 ==
LOC: JER 22:43 → JERBED 08-11 01:45 → J8W 08-11 03:40
PROVIDERS: ADMIT Internal Medicine; ATTEND Student in an Organized Health Care Education/Training Program
PROC: HZ2ZZZZ Detoxification Services for Substance Abuse Treatment (ICD-10-PCS; 2020-08-11)
PROC: 30233R1 Transfusion of Nonautologous Platelets into Peripheral Vein, Percutaneous Approach (ICD-10-PCS; principal; 2020-08-12)
DX: D61.818 Other pancytopenia (principal); D72.819 Decreased white blood cell count, unspecified; R16.1 Splenomegaly, not elsewhere classified; F10.239 Alcohol dependence with withdrawal, unspecified; I10 Essential (primary) hypertension; E87.6 Hypokalemia; R26.81 Unsteadiness on feet; K70.31 Alcoholic cirrhosis of liver with ascites; K76.6 Portal hypertension; E83.42 Hypomagnesemia; E83.39 Other disorders of phosphorus metabolism; D69.6 Thrombocytopenia, unspecified; E88.09 Other disorders of plasma-protein metabolism, not elsewhere classified; E46 Unspecified protein-calorie malnutrition; Z68.24 Body mass index [BMI] 24.0-24.9, adult
CPT/HCPCS: 36415; 36430; 70450-TC; 72125-TC; 73030-TC-LT-FY; 73564-TC-RT-FY; 74176-TC; 80048; 80053; 80307; 81003; 82140; 83010; 83615; 83735; 84100; 84443; 84484; 85025; 85045; 85384; 85610; 85730; 86850; 86880; 86900; 86901; 86922; 87040; 87086; 90715; 90732; 97116-GP; 97161-GP; 99285-25; G0009; J0131; P9058; U0003

== ENCOUNTER 2020-08-16 20:25 | Inpatient (IN) | payer OTHER ==
[2020-08-16 19:36] VITALS: BMI 26.6
--- NOTE | 2020-08-16 19:51 | HP ---
CIWA Score - Admission Criteria [facility]ASAS Guidelines: Admission for Medically Managed Detox: Requires at least one of the followin. CIWA greater than 12 2. Seizures within the past 24 hours 3. Delirium tremens within the past 24 hours 4. Hallucinations within the past 24 hours 5. Acute intervention needed for co occurring medical disorder 6. Acute intervention needed for co occurring psychiatric disorder 7. Severe withdrawal that cannot be handled at a lower level of care (continued vomiting, continued diarrhea, abnormal vital signs) requiring intravenous medication and/or fluids 8. Admitting History and Physical - Past Medical History Cardiovascular: Yes: HTN Gastrointestinal: Yes: Esophageal Varices (presumed) Hepatobiliary: Yes: Cirrhosis (alcoholic) - Smoking History Smoking history: Never smoked Have you smoked in the past 12 months: No - Alcohol/Substance Use Hx Alcohol Use: Yes (Alcohol abuse) - Social History ADL: Independent History of Recent Travel: No Admission ROS [facility] - [facility] Chief Complaint: Seeking admission to Rehab. Allergies/Adverse Reactions: Allergies Allergy/AdvReac Type Severity Reaction Status Date / Time No Known Allergies Allergy Verified 08/10/20 22:51 History of Present Illness: 59 years old male with a long history of alcohol dependence is seeking admission to Rehab. He came for detoxification admission on 08/09/2020. He did not meet criteria for detox admission but was sent to ER because he had cirrhosis of the liver and was noted with generalized bruises and ecchymosis to the abdomen and hands. He was admitted for pancytopenia, alcoholic withdrawal, and liver cirrhosis. He received 4U of platelets on 08/11 and his platelets started trending upwards after the transfusion. He has medical history of Cirrhosis of the liver, GERD, hypercholesterolemia, alcohol related seizures, Chronic Anemia, hypertension, denies psych. history and suicidal ideation at this time. He is unemployed, lives with his sister and denies any legal issues. Exam Limitations: No Limitations - Ebola screening Have you traveled outside of the country in the last 21 days: No Have you had contact with anyone from an Ebola affected area: No Have you been sick,other than usual withdrawal symptoms: No Do you have a fever: No - Review of Systems Constitutional: No Symptoms Reported EENT: reports: No Symptoms Reported Respiratory: reports: No Symptoms reported Cardiac: reports: No Symptoms Reported GI: reports: No Symptoms Reported : reports: No Symptoms Reported Musculoskeletal: reports: No Symptoms Reported Integumentary: reports: No Symptoms Reported Neuro: reports: No Symptoms reported Endocrine: reports: No Symptoms Reported Hematology: reports: No Symptoms Reported Psychiatric: reports: Mood/Affect Appropiate, Orientated x3 Other Systems: Reviewed and Negative Patient History - Patient Medical History Hx Anemia: Yes Hx Asthma: No Hx Chronic Obstructive Pulmonary Disease (COPD): No Hx Cancer: No Hx Cardiac Disorders: No Hx Congestive Heart Failure: No Hx Hypertension: Yes Hx Hypercholesterolemia: Yes HX Cerebrovascular Accident: No Hx Seizures: Yes (Alcohol related seizures) Hx Diabetes: No Hx Gastrointestinal Disorders: Yes (GERD) Hx Liver Disease: Yes (Cirrhosis of the liver) Hx Genitourinary Disorders: No Hx Sexually Transmitted Disorders: No Hx Renal Disease (ESRD): No Hx Thyroid Disease: No Hx Human Immunodeficiency Virus (HIV): No ([id number]) Hx Hepatitis C: No Hx Depression: Yes Hx Suicide Attempt: No (Denies suicidal ideation at this time) Hx Bipolar Disorder: No Hx Schizophrenia: No - Patient Surgical History Past Surgical History: Yes Hx Neurologic Surgery: No Hx Cataract Extraction: No Hx Cardiac Surgery: No Hx Lung Surgery: No Hx Abdominal Surgery: No Hx Appendectomy: Yes (at age 8) Hx Cholecystectomy: No Hx Genitourinary Surgery: No Hx Orthopedic Surgery: Yes (Left shoulder repair 2013) Anesthesia Reaction: No - PPD History Previous Implant?: Yes Implanted On Prior R Admission?: No PPD to be Administered?: Yes - Reproductive History Patient is a Female of Child Bearing Age (11 -55 yrs old): No (Male) - Smoking Cessation Smoking history: Never smoked Have you smoked in the past 12 months: No Hx Chewing Tobacco Use: No Initiated information on smoking cessation: No - Substance & Tx. History Hx Alcohol Use: Yes Hx Substance Use: Yes Substance Use Type: Alcohol, Marijuana Hx Substance Use Treatment: Yes ([facility]) - Substances abused Alcohol Substance route: Oral Frequency: Daily Amount used: 2-3 18oz. beer Age of first use: 27 Date of last use: 09/06/20 Admission Physical Exam [facility] - Vital Signs Vital Signs: Vital Signs - 24 hr 08/16/20 19:34 Temperature 97.5 F L Pulse Rate 72 Respiratory 19 Rate Blood Pressure 163/92 - Physical General Appearance: Yes: Within Normal Limits HEENTM: Yes: Within Normal Limits Respiratory: Yes: Within Normal Limits, Normal Breath Sounds Neck: Yes: Within Normal Limits Breast: Yes: Breast Exam Deferred Cardiology: Yes: Within Normal Limits Abdominal: Yes: Normal Bowel Sounds, Protuberent Genitourinary: Yes: Within Normal Limits Back: Yes: Normal Inspection Musculoskeletal: Yes: Within Normal Limits Neurological: Yes: Within Normal Limits Integumentary: Yes: Warm Lymphatic: Yes: Within Normal Limits - Diagnostic (1) Alcohol dependence Status: Chronic Qualifiers: Substance use status: uncomplicated Qualified Code(s): F10.20 - Alcohol dependence, uncomplicated (2) Cirrhosis of liver Status: Chronic Qualifiers: Ascites presence: with ascites (3) Hypercholesterolemia Status: Chronic (4) Alcohol related seizure Status: Chronic (5) GERD (gastroesophageal reflux disease) Status: Acute Qualifiers: Esophagitis presence: esophagitis presence not specified Qualified Code(s): K21.9 - Gastro-esophageal reflux disease without esophagitis (6) Hypertension Status: Chronic Qualifiers: Hypertension type: essential hypertension Qualified Code(s): I10 - Essential (primary) hypertension (7) Chronic anemia Status: Chronic (8) Marijuana dependence Status: Chronic (9) Status post fall Status: Acute (10) Thrombocytopenia Status: Chronic Cleared for Admission S - Detox or Rehab [facility] Level of Care: Observation Bed Claeared for Rehab Admission: Yes Breathalyzer - Breathalyzer Breathalyzer: 0 Urine Drug Screen - Test Device Lot number: [id number] Expiration date: 06/18/22 - Control Is test valid?: Yes - Results Drug screen NEGATIVE: No Urine drug screen results: THC-Marijuana, BZO-Benzodiazepines Inpatient Rehab Admission - Rehab Decision to Admit Inpatient rehab admission?: Yes - Initial Determination Are CD services needed?: No Free of communicable disease: Yes Not in need of hospitalization: Yes - Rehab Admission Criteria Previous failed treatment: Yes Poor recovery environment: Yes Comorbidities: Yes Lacks judgement: No Patient is meeting Inpatient Rehab admission criteria:: Yes
[~2020-08-16 20:25] MED LIST: ACETAMINOPHEN 325 MG TABLET (FP) PO PRN; IBUPROFEN 400 MG TABLET (FP) PO PRN; LOPERAMIDE HCL 2 MG CAPSULE PO PRN; MAG HYDROX/AL HYDROX/SIMETH 30 ML UNIT-DOSE CUP PO PRN; MAGNESIUM CITRATE 300 ML BOTTLE PO PRN; MAGNESIUM HYDROX 2400MG/30ML ORAL SUSPENSION 30 ML CUP PO PRN; P-EPHED 60MG/TRIPROLIDI 2.5MG TABLET PO PRN; guaiFENesin 200 MG/10 ML 10 ML UNIT-DOSE CUPS PO PRN
[2020-08-16] MEDS: THIAMINE HCL 100 MG TABLET (FP) PO SCH (21:28)
[2020-08-16] MEDS ORDERED: TUBERCULIN PPD 5 TU/0.1ML VIAL ID ONE (21:28)
[2020-08-16] MEDS: MELATONIN 5 MG TABLETS PO SCH (21:31)
[2020-08-17] MEDS: PRENATAL VITAMINS W/ FOLIC ACID TABLET (FP) PO SCH (09:42)
[2020-08-17 09:44] LABS: HEMATOCRIT 28.9 % (35.4-49); MCH 31.4 pg (25.7-33.7); MCHC 34.5 g/dl (32.0-35.9); MEAN CELL VOLUME 90.8 fl (80-96); MEAN PLT VOLUME 9.4 fl (7.5-11.1); PLATELET COUNT 46 K/MM3 (134-434); RBC 3.19 M/mm3 (4.00-5.60); RDW 20.5 % (11.9-15.9); WHITE BLOOD COUNT 2.6 K/mm3 (4.0-10.0)
[2020-08-17 09:57] LABS: POTASSIUM 3.8 mmol/L (3.5-5.1)
[2020-08-17 10:05] LABS: ALBUMIN 2.7 g/dl (3.4-5.0); BILIRUBIN,TOTAL 3.2 mg/dL (0.2-1); BLOOD UREA NITROGEN 10.9 mg/dL (7-18); CALCIUM 8.5 mg/dL (8.5-10.1); CREATININE 0.5 mg/dL (0.55-1.3); TOT PROT 7.8 g/dl (6.4-8.2)
[2020-08-17 11:03] LABS: SICKLE CELL SCREEN NEGATIVE (NEGATIVE)
[2020-08-17] MEDS: SPIRONOLACTONE 25 MG TABLET PO SCH (12:01)
[2020-08-17 17:46] LABS: EPI CELLS 5 /uL (0-25.1); HYALINE CASTS 1 /uL (0-3.1); URINE APPEARANCE CLEAR; URINE BACTERIA 8 /uL (0-1359); URINE BILIRUBIN 1+ (NEGATIVE); URINE COLOR DK YELLOW; URINE GLUCOSE (UA) NEGATIVE (NEGATIVE); URINE KETONE NEGATIVE (NEGATIVE); URINE LEUK ESTERASE NEGATIVE (NEGATIVE); URINE NITRITE NEGATIVE (NEGATIVE); URINE PROTEIN 2+ (NEGATIVE); URINE RBC 458 /uL (0-23.9); URINE WBC 8 /uL (0-25.8)
[2020-08-17] MEDS: MELATONIN 5 MG TABLETS PO SCH (21:21)
[2020-08-17] MEDS: THIAMINE HCL 100 MG TABLET (FP) PO SCH (21:21)
[2020-08-18] MEDS: PRENATAL VITAMINS W/ FOLIC ACID TABLET (FP) PO SCH (09:26)
[2020-08-18] MEDS: SPIRONOLACTONE 25 MG TABLET PO SCH (09:26)
[2020-08-18] MEDS: MELATONIN 5 MG TABLETS PO SCH (21:13)
[2020-08-18] MEDS: THIAMINE HCL 100 MG TABLET (FP) PO SCH (21:13)
[2020-08-19] MEDS: PRENATAL VITAMINS W/ FOLIC ACID TABLET (FP) PO SCH (09:41)
[2020-08-19] MEDS: SPIRONOLACTONE 25 MG TABLET PO SCH (09:41)
[2020-08-19] MEDS: MELATONIN 5 MG TABLETS PO SCH (21:15)
[2020-08-19] MEDS: THIAMINE HCL 100 MG TABLET (FP) PO SCH (21:15)
[2020-08-20] MEDS: SPIRONOLACTONE 25 MG TABLET PO SCH (10:22)
[2020-08-20] MEDS: PRENATAL VITAMINS W/ FOLIC ACID TABLET (FP) PO SCH (10:22)
[2020-08-20] MEDS: THIAMINE HCL 100 MG TABLET (FP) PO SCH (21:46)
[2020-08-20] MEDS: MELATONIN 5 MG TABLETS PO SCH (21:46)
[2020-08-21] MEDS: SPIRONOLACTONE 25 MG TABLET PO SCH (09:25)
[2020-08-21] MEDS: PRENATAL VITAMINS W/ FOLIC ACID TABLET (FP) PO SCH (09:26)
[2020-08-21] MEDS: MELATONIN 5 MG TABLETS PO SCH (21:08)
[2020-08-21] MEDS: THIAMINE HCL 100 MG TABLET (FP) PO SCH (21:09)
[2020-08-22] MEDS: SPIRONOLACTONE 25 MG TABLET PO SCH (09:43)
[2020-08-22] MEDS: PRENATAL VITAMINS W/ FOLIC ACID TABLET (FP) PO SCH (09:43)
[2020-08-22] MEDS: MELATONIN 5 MG TABLETS PO SCH (21:32)
[2020-08-22] MEDS: THIAMINE HCL 100 MG TABLET (FP) PO SCH (21:32)
--- NOTE | 2020-08-23 02:46 | PN ---
[facility] Progress Note Note: ASKED TO SEE CLIENT FOR FALL. PER NURSING CLIENT WAS FOUND IN A SITTING POSITION ON THE FLOOR NEXT TO HIS BED. HE WAS ALSO NOTED WITH FEVER AND CHILLS, PERIODS OF CONFUSION. HE DOES NOT REMEMBER FALL. C/O DIZZINESS AND ABD PAIN. DENIES SOB, C.P. Vital Signs 08/22/20 08/23/20 20:35 03:02 Temperature 99.9 F H 100.4 F H Pulse Rate 83 Respiratory 20 Rate Blood Pressure 82/56 L O2 Sat by Pulse 98 97 Oximetry (%) Laboratory Tests 08/17/20 08/17/20 08/17/20 07:30 07:30 07:30 WBC 2.6 L RBC 3.19 L Hgb 10.0 L Hct 28.9 L MCV 90.8 MCH 31.4 D MCHC 34.5 RDW 20.5 H Plt Count 46 L D MPV 9.4 Sickle Cell Screen Negative Sodium 136 Potassium 3.8 Chloride 105 Carbon Dioxide 25 Anion Gap 7 L BUN 10.9 Creatinine 0.5 L Est GFR (CKD-EPI)AfAm 139.42 Est GFR (CKD-EPI)NonAf 120.29 Random Glucose 77 Calcium 8.5 Total Bilirubin 3.2 H AST 94 H ALT 33 Alkaline Phosphatase 182 H Total Protein 7.8 Albumin 2.7 L Urine Color Urine Appearance Urine pH Ur Specific [place] Urine Protein Urine Glucose (UA) Urine Ketones Urine Blood Urine Nitrite Urine Bilirubin Urine Urobilinogen Ur Leukocyte Esterase Urine WBC (Auto) Urine RBC (Auto) Urine Casts (Auto) U Epithel Cells (Auto) Urine Bacteria (Auto) Syphilis Serology Non-reactive 08/17/20 09:00 WBC RBC Hgb Hct MCV MCH MCHC RDW Plt Count MPV Sickle Cell Screen Sodium Potassium Chloride Carbon Dioxide Anion Gap BUN Creatinine Est GFR (CKD-EPI)AfAm Est GFR (CKD-EPI)NonAf Random Glucose Calcium Total Bilirubin AST ALT Alkaline Phosphatase Total Protein Albumin Urine Color Dk yellow Urine Appearance Clear Urine pH 6.0 Ur Specific [place] 1.015 Urine Protein 2+ H Urine Glucose (UA) Negative Urine Ketones Negative Urine Blood 3+ H Urine Nitrite Negative Urine Bilirubin 1+ H Urine Urobilinogen 1.0 Ur Leukocyte Esterase Negative Urine WBC (Auto) 8 Urine RBC (Auto) 458 Urine Casts (Auto) 1 U Epithel Cells (Auto) 5 Urine Bacteria (Auto) 8 Syphilis Serology ABNORMAL LABS NOTED CLIENT SEEN LYING IN BED TREMULOUS WITH PERIODS OF CONFUSION. HE IS MOSTLY [place] SPEAKING BUT CAN COMMUNICATE IN [place]. CANE NOTED AT BEDSIDE. NCAT, PERRLA, NO VISIBLE INJURIES CV- TACHY LUNGS- CTAB ABD- PROTUBERANT, DISTENDED, ? ASCITES SKIN- INTACT, FLUSHED, HOT TO TOUCH EXTREMITIES- UNSTEADY GAIT, WEAKNESS, UNABLE TO SIT UP IN BED DURING EXAM. A- S/P UNWITNESSED FALL FEVER P- 59 Y.O MALE ADMITTED ON 08/16/20 FROM [facility] AFTER COMPLETING DETOX THERE AND TREATED FOR HEPATIC CIRRHOSIS, THROMBOCYTOPENIA, FALL......S/P FALL TODAY NOW WITH FEVER, TREMORS WITH C/O WEAKNESS AND DIZZINESS. CLIENT IS BEING TRANSFERRED TO [facility] FOR FEVER AND FALL- WORK UP. HEAD CT ORDERED CASE ENDORSED TO DR. LE. CALLED BY DR. LE AFTER TRANSFER THAT CLIENT WAS REDIRECTED TO [facility] DUE TO CT SCAN BEING INOPERABLE.
[2020-08-23 03:04] VITALS: BP 82/56; PULSE 83; TEMP 100.4
[2020-08-23] MEDS ORDERED: PT OWN MED DRAWER 7, Y5N ONE (08:47)
== END 2020-08-23 03:10 | disposition short-term general hospital (02) | DRG 772 ==
LOC: YASAS 20:25 → Y3W 20:26
PROVIDERS: ADMIT Allergy & Immunology; ATTEND Allergy & Immunology
PROC: HZ42ZZZ Group Counseling for Substance Abuse Treatment, Cognitive-Behavioral (ICD-10-PCS; principal; 2020-08-16)
DX: F10.20 Alcohol dependence, uncomplicated (principal); F12.20 Cannabis dependence, uncomplicated; D69.6 Thrombocytopenia, unspecified; D64.9 Anemia, unspecified; G40.509 Epileptic seizures related to external causes, not intractable, without status epilepticus; I10 Essential (primary) hypertension; K74.60 Unspecified cirrhosis of liver; K21.9 Gastro-esophageal reflux disease without esophagitis; R50.9 Fever, unspecified; R53.1 Weakness; R41.0 Disorientation, unspecified; W06.XXXA Fall from bed, initial encounter; Y93.89 Activity, other specified; Y92.230 Patient room in hospital as the place of occurrence of the external cause; Y99.8 Other external cause status
CPT/HCPCS: 36415; 80053; 81003; 85027; 85660; 86780